=== PATIENT | female | born 1950 | race Caucasian/White ===

== ENCOUNTER → 2017-03-05 | Outpatient (CLI) | payer OTHER ==
[~2017-03-05] MED LIST: ASPIRIN CHEWABL81 MG PO; ASPIRIN325 MG PO; CILOXAN 5 ML5 M1 OP; CIPROFLOXACIN500 MG PO; CLARITIN10 MG PO; COMBIVENT1 ARO IH; LEVOTHYROXINE0.15 M1 PO; LIPITOR20 MG PO; LOPID600 MG PO; MACROBID100 M1 PO; MEDROL DOSEPAK4 MG PO; NITROGLYCERIN0.4 MG SL; OFLOXACIN OTIC5 ML OPH; SYNTHROID,LEV125 MCG PO; VIBRAMYCIN100 MG PO; VICODIN 5/500 505 MG PO; VICODIN1 TAB PO; Zofran4 MG PO
== END | disposition home or self-care (01) ==
LOC: CT 08:49
DX: R93.5 Abnormal findings on diagnostic imaging of other abdominal regions, including retroperitoneum (principal); K59.00 Constipation, unspecified; M43.26 Fusion of spine, lumbar region; R63.0 Anorexia; Z87.891 Personal history of nicotine dependence; Z90.49 Acquired absence of other specified parts of digestive tract; Z90.710 Acquired absence of both cervix and uterus

== ENCOUNTER → 2017-03-24 | Outpatient (CLI) | payer OTHER | END | disposition home or self-care (01) | LOC: RAD 12:54 | DX: Z78.0 Asymptomatic menopausal state (principal) ==

== ENCOUNTER 2017-11-11 18:07 | Emergency (ER) | payer OTHER, MEDICAID ==
[~2017-11-11] VITALS: Ht 149.8 cm; Wt 44.0 kg
[2017-11-11 18:40] LABS: BASO # 0.1 10*3/uL (0.0-0.1); BASO % 0.8 % (0.0-1.0); EOS # 0.1 10*3/uL (0.0-0.4); EOS % 1.1 % (1.0-4.0); HEMATOCRIT 45.2 % (37.0-47.0); HEMOGLOBIN 15.3 g/dl (12.0-16.0); LYMPH # 3.2 10*3/uL (1.3-4.4); LYMPH % 23.7 % (27.0-41.0); MEAN CORPUSCULAR HGB 31.8 pg (27.0-31.0); MEAN CORPUSCULAR HGB CONC 33.8 g/dl (33.0-37.0); MEAN PLATELET VOLUME 11.4 fl (9.6-12.3); MONO # 0.7 10*3/uL (0.1-1.0); MONO % 5.5 % (3.0-9.0); NEUT # 9.1 10*3/uL (2.3-7.9); NEUT % 68.4 % (47.0-73.0); PLATELET COUNT AUTOMATED 373 10*3/uL (130-400); RED BLOOD COUNT 4.81 10*6/uL (4.10-5.10); RED CELL DISTRI WIDTH 13.2 % (0-14.5); WHITE BLOOD COUNT 13.3 10*3/uL (4.8-10.8)
[2017-11-11 18:56] LABS: ALBUMIN 4.1 gm/dl (3.1-4.5); ALKALINE PHOSPHATASE 112 U/L (45-117); BUN 20 mg/dl (7-24); CHLORIDE 103 mmol/L (98-107); CREATININE 0.82 mg/dL (0.55-1.02); LIPASE 111 U/L (73-393); POTASSIUM 3.9 mmol/L (3.5-5.1); SGOT/AST 25 IU/L (3-35); SGPT/ALT 27 U/L (12-78); SODIUM 139 mmol/L (136-145); TOTAL PROTEIN 8.2 gm/dL (6.4-8.2)
[2017-11-11 19:45] LABS: BILIRUBIN NEGATIVE (NEGATIVE); BLOOD NEGATIVE (NEGATIVE); CLARITY CLEAR (CLEAR); COLOR YELLOW (YELLOW); GLUCOSE NEGATIVE (NEGATIVE); KETONE NEGATIVE (NEGATIVE); LEUKO ESTERASE TRACE (NEGATIVE); NITRITE NEGATIVE (NEGATIVE); SPECIFIC GRAVITY <= 1.005 (1.005-1.030); UROBILINOGEN 0.2 E.U./dl (0.2-1.0)
[2017-11-11 19:54] LABS: BACTERIA 2+; EPITHELIAL CELLS 15-20; RBC 0-2 rbc/hpf (0-2)
[2017-11-11] MEDS ORDERED: MIRALAX POWDER17 G1 PO (20:26)
[2017-11-11] MEDS ORDERED: Bactrim DS PO (20:26)
== END 2017-11-11 20:37 | disposition home or self-care (01) ==
LOC: ED 18:07
PROVIDERS: Nurse Practitioner Family
DX: N39.0 Urinary tract infection, site not specified (principal); K59.00 Constipation, unspecified; R03.0 Elevated blood-pressure reading, without diagnosis of hypertension; F17.200 Nicotine dependence, unspecified, uncomplicated; Z88.0 Allergy status to penicillin

== ENCOUNTER 2017-11-24 14:01 | Emergency (ER) | payer OTHER, MEDICAID ==
[~2017-11-24] VITALS: Ht 149.8 cm; Wt 42.6 kg
[~2017-11-24 14:01] MED LIST changes: +Bactrim DS PO; +MIRALAX POWDER17 G1 PO
== END 2017-11-24 15:50 | disposition home or self-care (01) ==
LOC: ED 14:01
DX: F32.9 Major depressive disorder, single episode, unspecified (principal); F17.200 Nicotine dependence, unspecified, uncomplicated; Z88.0 Allergy status to penicillin; Z79.899 Other long term (current) drug therapy; Z79.82 Long term (current) use of aspirin; Z86.73 Personal history of transient ischemic attack (TIA), and cerebral infarction without residual deficits

== ENCOUNTER 2018-03-02 16:09 | Emergency (ER) | payer OTHER, MEDICAID ==
[~2018-03-02] VITALS: Ht 157.4 cm; Wt 63.5 kg
[2018-03-02 16:40] LABS: BASO # 0.1 10*3/uL (0.0-0.1); BASO % 0.6 % (0.0-1.0); EOS # 0.3 10*3/uL (0.0-0.4); EOS % 2.8 % (1.0-4.0); HEMATOCRIT 41.8 % (37.0-47.0); HEMOGLOBIN 13.8 g/dl (12.0-16.0); LYMPH # 3.2 10*3/uL (1.3-4.4); LYMPH % 29.9 % (27.0-41.0); MEAN CELL VOLUME 95.9 fl (81.0-99.0); MEAN CORPUSCULAR HGB 31.7 pg (27.0-31.0); MEAN PLATELET VOLUME 10.8 fl (9.6-12.3); MONO # 0.8 10*3/uL (0.1-1.0); MONO % 7.1 % (3.0-9.0); NEUT # 6.3 10*3/uL (2.3-7.9); NEUT % 59.1 % (47.0-73.0); PLATELET COUNT AUTOMATED 315 10*3/uL (130-400); RED BLOOD COUNT 4.36 10*6/uL (4.10-5.10); RED CELL DISTRI WIDTH 13.3 % (0-14.5); WHITE BLOOD COUNT 10.6 10*3/uL (4.8-10.8)
[2018-03-02 16:57] LABS: BUN 15 mg/dl (7-24); CHLORIDE 109 mmol/L (98-107); CREATININE 0.66 mg/dL (0.55-1.02); POTASSIUM 4.1 mmol/L (3.5-5.1); SODIUM 143 mmol/L (136-145)
[2018-03-02 16:59] LABS: TROPONIN I < 0.015 ng/ml (<0.045)
== END 2018-03-02 17:28 | disposition home or self-care (01) ==
LOC: ED 16:09
PROVIDERS: Emergency Medicine
DX: R25.2 Cramp and spasm (principal); Z98.890 Other specified postprocedural states; Z90.710 Acquired absence of both cervix and uterus; Z86.73 Personal history of transient ischemic attack (TIA), and cerebral infarction without residual deficits; Z79.82 Long term (current) use of aspirin; Z79.899 Other long term (current) drug therapy; Z88.0 Allergy status to penicillin; Z87.891 Personal history of nicotine dependence

== ENCOUNTER → 2018-05-12 | Outpatient (CLI) | payer OTHER, MEDICAID | END | disposition home or self-care (01) | LOC: CT 10:34 | DX: I70.201 Unspecified atherosclerosis of native arteries of extremities, right leg (principal) ==

== ENCOUNTER → 2018-06-15 | Outpatient (CLI) | payer OTHER, MEDICAID | END | disposition home or self-care (01) | LOC: RAD 11:12 | DX: R07.9 Chest pain, unspecified (principal) ==

== ENCOUNTER → 2018-12-02 | Outpatient (CLI) | payer OTHER, MEDICAID ==
[~2018-12-02] MED LIST changes: +NORCO 5-325 TA1 EACH PO; +PLAVIX75 M1 PO; -VICODIN1 TAB PO; +ZOCOR40 MG PO
== END | disposition home or self-care (01) ==
LOC: US 12:06
DX: I73.89 Other specified peripheral vascular diseases (principal); Z95.820 Peripheral vascular angioplasty status with implants and grafts

== ENCOUNTER → 2018-12-29 | Outpatient (CLI) | payer OTHER, MEDICAID ==
[~2018-12-29] MED LIST changes: +DELTASONE20 M1 PO; +FOSAMAX70 M1 PO; +Ipratropium Brom3 ML INH; +OMEPRAZOLE40 MG PO
== END | disposition home or self-care (01) ==
LOC: CT 08:47
DX: M51.36 Other intervertebral disc degeneration, lumbar region (principal); M47.896 Other spondylosis, lumbar region

== ENCOUNTER → 2019-03-28 | Outpatient (CLI) | payer OTHER, MEDICAID | END | disposition home or self-care (01) | LOC: RAD 10:30 | DX: Z13.820 Encounter for screening for osteoporosis (principal); N95.9 Unspecified menopausal and perimenopausal disorder; Z90.710 Acquired absence of both cervix and uterus ==

== ENCOUNTER → 2019-05-15 | Outpatient (CLI) | payer OTHER, MEDICAID ==
[2019-05-15 10:13] VITALS: BP 123/68
== END | disposition home or self-care (01) ==
LOC: INJECTION 09:46
DX: M81.0 Age-related osteoporosis without current pathological fracture (principal); E78.00 Pure hypercholesterolemia, unspecified; J43.9 Emphysema, unspecified; F17.200 Nicotine dependence, unspecified, uncomplicated; Z86.73 Personal history of transient ischemic attack (TIA), and cerebral infarction without residual deficits

== ENCOUNTER 2019-06-03 18:47 | Emergency (ER) | payer OTHER, MEDICAID ==
[~2019-06-03] VITALS: Ht 149.8 cm; Wt 48.5 kg
--- NOTE | ~2019-06-03 | PR ---
[place], [place] PROGRESS NOTE NAME: ÁNGELA HENRY UNIT #: [id number] ROOM: DOCTOR: NAIF GRIFFITHS MD BIRTHDATE: [birth year] DOS: 06/13/2019 SUBJECTIVE: She was n.p.o. ____ for bronchoscopy done today. She continues to have similar cough and pain in and abdominal wall muscles because of the cough. Denies symptoms of chest pain. There were no symptoms of hemoptysis. Shortness of breath and wheezing was also reported intermittently. REVIEW OF SYSTEMS: Remaining system were reviewed that was noted all negative. PHYSICAL EXAMINATION: VITAL SIGNS: Normal temperature, respiratory rate of 20, heart rate 87, blood pressure 136/66. The pulse oxygen saturation recorded on room air 94% saturation. HEENT: Head was divided. Eyes nonicterus. NECK: Supple. CARDIOVASCULAR: S1, S2 is audible. LUNGS: Noted patient without any wheezing or crackles at the present time. ABDOMEN: Soft, nontender. Bowel sounds present. EXTREMITIES: The patient was noted without any acute edema. MUSCULOSKELETAL: Without any acute deformities. CENTRAL NERVOUS SYSTEM: Intact. IMPRESSION: 1. Acute exacerbation of chronic obstructive pulmonary disease, persistent nonresolving cough, since hospitalization with musculoskeletal pain. 2. History of previous nicotine abuse. 3. Possibility of nodular opacity in the right lower lobe, most likely related to the area of atelectasis, small infection. 4. Addition nodule left upper lung noted, less than 8 mm in size. 5. History of nicotine dependence. PLAN OF TREATMENT: Proceed with the bronchoscopy as planned. No additional change of treatment, patient remains ____ any adjustment in the medication needs to be done will be ordered based on the progression of the illness. Usual care. Other supportive therapy, plan of management care, plan of treatments. [place], [place] PROGRESS NOTE NAME: ÁNGELA HENRY UNIT #: [id number] ROOM: DOCTOR: NAIF GRIFFITHS MD BIRTHDATE: [birth year] NAIF ANDERSON MD CM:PNTRANS [id number] NAIF LOTT MD 06/14/19 0917 interface
[~2019-06-03 18:47] MED LIST changes: -DELTASONE20 M1 PO; -Ipratropium Brom3 ML INH; -OMEPRAZOLE40 MG PO
[2019-06-03] MEDS ORDERED: DELTASONE20 M1 PO (20:56)
[2019-06-03] MEDS ORDERED: VIBRAMYCIN100 MG PO (20:56)
== END 2019-06-03 22:41 | disposition home or self-care (01) ==
LOC: ED 18:47
DX: J32.9 Chronic sinusitis, unspecified (principal); J44.1 Chronic obstructive pulmonary disease with (acute) exacerbation; H57.89 Other specified disorders of eye and adnexa; F17.200 Nicotine dependence, unspecified, uncomplicated; Z79.899 Other long term (current) drug therapy; Z79.82 Long term (current) use of aspirin; Z88.0 Allergy status to penicillin

== ENCOUNTER 2019-06-08 11:54 | Inpatient (IN) | payer OTHER, MEDICAID ==
[2019-06-08] VITALS (7 sets, daily range): BP systolic 126–156; BP diastolic 60–90
[~2019-06-08] VITALS: Ht 152.4 cm; Wt 49.6 kg
--- NOTE | ~2019-06-08 | EKG ---
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
--- NOTE | ~2019-06-08 | EKG ---
[place], [place] ELECTROCARDIOGRAM REPORT NAME: ÁNGELA HENRY UNIT #: [id number] ROOM: 516 DOCTOR: MIHAI DRAFT REPORT BIRTHDATE: [birth year] [facility] [place] Test Date: 2019-06-08 Test Time: 14:35:46 Pat Name: ÁNGELA HENRY Department: Room: 516 Gender: F Creative Assistant: aTmy Riley : 1950 Requested By: DAVION HEATON Order Number: [id number] Reading MD: Louise Jones MD Measurements Intervals [place] Rate: 84 P: 75 NM: 130 QRS: 51 QRSD: 72 T: 40 QT: 386 QTc: 457 Interpretive Statements Sinus rhythm Right atrial enlargement Compared to ECG 10/17/2018 20:57:04 No significant changes Electronically Signed On 06-09-2019 5:00:11 PDT by Louise Jones MD CM:EKGRPT:ELECTROCARDIOGRAM REPORT 1435 0500 DAVION HOLM DRAFT REPORT DAVION HEATON M.D.
--- NOTE | ~2019-06-08 | PR ---
[place], [place] PROGRESS NOTE NAME: ÁNGELA HENRY UNIT #: [id number] ROOM: 516 DOCTOR: AURA LEE MD BIRTHDATE: [birth year] DOS: 06/12/2019 SUBJECTIVE: The patient is about the same, does not have any new complaints, awaiting a bronchoscopy this morning. OBJECTIVE: VITAL SIGNS: Blood pressure is 137/79, pulse of 90, respirations 18, temperature 98.1. LUNGS: Diminished breath sounds, scattered wheezes and rhonchi. HEART: Regular. ABDOMEN: Obese, soft, nontender. EXTREMITIES: Without any edema. ASSESSMENT AND PLAN: 1. Acute exacerbation of chronic obstructive pulmonary disease, improving slowly. 2. Right lower lobe pneumonia versus pulmonary nodule, awaiting a bronchoscopy today. 3. Rheumatoid arthritis with chronic pain. ESR is normal. 4. Moderate cigarette smoker. The patient is encouraged to quit smoking. She has not had any cigarettes since admission. 5. Chronic pain from primary osteoarthritis along with rheumatoid arthritis. Continue pain medications. 6. Hypoxic respiratory failure, which has resolved. Await for bronchoscopy results to decide on discharge planning. AURA LEE MD CM:PNTRANS 7 [phone] AURA LEE MD 06/13/192230 interface
--- NOTE | ~2019-06-08 | EKG ---
[place], [place] ELECTROCARDIOGRAM REPORT NAME: ÁNGELA HENRY UNIT #: [id number] ROOM: 516 DOCTOR: MIHAI DRAFT REPORT BIRTHDATE: [birth year] [facility] Test Date: 2019-06-08 Test Time: 17:30:52 Pat Name: ÁNGELA HENRY Department: Room: 516 Gender: F Turkish Rubber: Tamy Riley : 1950 Requested By: DAVION HEATON Order Number: [id number] Reading MD: Louise Jones MD Measurements Intervals [place] Rate: 85 P: 83 IA: 129 QRS: 73 QRSD: 79 T: 69 QT: 383 QTc: 456 Interpretive Statements Sinus rhythm Right atrial enlargement Compared to ECG 10/17/2018 20:57:04 No significant changes Electronically Signed On 06-09-2019 5:02:35 PDT by Louise Jones MD CM:EKGRPT:ELECTROCARDIOGRAM REPORT 1730 0502 DAVION HOLM DRAFT REPORT DAVION HEATON M.D.
--- NOTE | ~2019-06-08 | PR ---
[place], [place] PROGRESS NOTE NAME: ÁNGELA HENRY UNIT #: [id number] ROOM: 516 DOCTOR: JUSTIN LOTT MD,NAIF BIRTHDATE: [birth year] DOS: 06/14/2019 SUBJECTIVE: She has been noted marked improvement and reduction in the respiratory symptoms after bronchoscopy. Denies symptoms of fever or chills, coughing or any sputum expectoration or any abdominal pain. OBJECTIVE: VITAL SIGNS: Normal temperature, respiratory rate 16, heart rate 100, blood pressure 130/66 early recorded. Pulse ox saturation with room air 94% saturation. HEENT: Examination shows head was atraumatic. Eyes nonicterus. NECK: Supple. CARDIOVASCULAR: S1, S2 audible. LUNGS: The patient was noted clear wheezing bilaterally. There were no crackles. ABDOMEN: Soft, nontender. LABORATORY DATA: The culture results of the bronchial washing as normal tian. IMPRESSION: 1. The patient with possibility of small airway disease with a nodular density in the right lower lobe. 2. Small left upper lung pulmonary nodule as well medially located. 3. Acute exacerbation of chronic obstructive pulmonary disease. PLAN OF MANAGEMENT: The patient could be discharged home. The patient's oral medications as antibiotics and tapering dose of prednisone. Outpatient followup for the patient was recommended for the pulmonary nodule. Other therapy, plan of management, care plan and treatment. NAIF ANDERSON MD CM:PNTRANS [phone] NAIF LOTT MD 06/21/19 0837 interface
--- NOTE | ~2019-06-08 | WRIGHTHP ---
[place], [place] PATIENT HISTORY AND PHYSICAL EXAM NAME[id number] UNIT #: [id number] ROOM: 516 DOCTOR: AURA LEE MD BIRTHDATE: [birth year] DOS: 06/08/2019 HISTORY OF PRESENT ILLNESS: This patient is a 68-year-old. The patient was seen in the office with complaints of increasing shortness of breath. There were no direct beds of admission, so the patient was sent out to the Emergency Room. She was reevaluated again in the ER, this is the second visit in the last 3-4 days. This time she was diagnosed with pneumonia and was admitted. In the office, she was hypoxic with a saturation in the low 90s on room air. She denies having any chest pains, palpitations. The cough is productive of scant amount of sputum. Denies having any nausea, any emesis, chest pains or palpitations. PAST MEDICAL HISTORY: Significant for: 1. Hospital admission last year with complaints of chest pain with a negative stress test. 2. Moderate nicotine abuse. 3. Hypothyroidism. 4. Mixed hyperlipidemia. MEDICATIONS: She is on are Plavix 75 daily, aspirin 81 daily, Elysian 5 q.4, levothyroxine 100 mcg, simvastatin 40 daily. SOCIAL HISTORY: Smoker of about 1 pack of cigarettes a day. Denies using any alcohol. She lives at home alone. PHYSICAL EXAMINATION: GENERAL: She is awake and alert and oriented. She was pretty short of breath when I initially saw in the office with [id number] respiratory distress, room air saturation of 90. VITAL SIGNS: Pulse 70, respirations 20, temperature 97.9, blood pressure of 134/75. LUNGS: Diminished breath sounds, scattered wheezes and rhonchi. HEART: Regular. ABDOMEN: Obese, soft, nontender. EXTREMITIES: Without any edema. ASSESSMENT AND PLAN: 1. Acute exacerbation of chronic obstructive pulmonary disease. The patient is placed on IV steroids and antibiotics. 2. Moist sounding cough with sepsis pattern, will do blood cultures, sputum cultures. Mucinex has been added. IV antibiotics have been added. A CT of the chest will be done to rule out extent of pneumonia. 3. Moderate cigarette smoker. The patient does not want to have any patch. 4. Severe peripheral vascular disease, status post stenting. She was supposed to undergo a peripheral arterial Doppler and Radiology today will try to get it done since she is inpatient. [place], [place] PATIENT HISTORY AND PHYSICAL EXAM NAME: ÁNGELA HENRY UNIT #: [id number] ROOM: [facility] DOCTOR: AURA LEE MD BIRTHDATE: [birth year] AURA LEE MD CM:HISPHYS:PATIENT HISTORY AND PHYSICAL EXAMINATION 0741 0751 AURA LEE MD 06/09/19 0750 interface
--- NOTE | ~2019-06-08 | PROC NOTE ---
[place], [place] PROCEDURE NOTE NAME: ÁNGELA HENRY UNIT #: [id number] ROOM: 516 DOCTOR: JUSTIN LOTT MD,NAIF BIRTHDATE: [birth year] DOS: 06/13/2019 BRONCHOSCOPY NOTE PREOPERATIVE DIAGNOSIS: Nonresolving severe cough with pulmonary nodule. POSTOPERATIVE DIAGNOSIS: Removal of significant amount of mucus impaction from major airways bilaterally. FINDINGS: Tracheobronchitis. PROCEDURE DESCRIPTION: Informed consent was obtained for the patient. The patient was brought to the OR and placed in supine position. Conscious sedation was administered by the Anesthesia Department. After that, the airway introduced into the mouth. Bronchoscope was advanced to the airway into laryngeal area. Epiglottis and vocal cords seen. Vocal cord was moving symmetrically with movements. Bronchoscope was advanced to the vocal cord and tracheal lumen. Tracheal lumen was identified. Tracheal lumen was noted with moderate amount of thick mucus, suctioned out to the barry level. Right upper, right middle, right lower, left upper, lingular lower lobe bronchi noted with large plugs of mucus, which was removed with the help of normal saline wash without any difficulty. Postoperative findings were discussed with the patient's and the patient in detail in the recovery room. NAIF ANDERSON MD CM:PROCNOTE:PROCEDURE NOTE 1246 0043 NAIF LOTT MD
--- NOTE | ~2019-06-08 | PR ---
[place], [place] PROGRESS NOTE NAME: ÁNGELA HENRY UNIT #: [id number] ROOM: 516 DOCTOR: AURA LEE MD BIRTHDATE: [birth year] DOS: 06/14/2019 SUBJECTIVE: The patient is doing well without any complaints this morning, underwent the bronchoscopy yesterday. OBJECTIVE: VITAL SIGNS: Graphic trend shows a pressure 134/66, pulse of 80, respirations 16, temperature 97.9. LUNGS: Clear. HEART: Regular. ABDOMEN: Soft. EXTREMITIES: Without any edema. LABORATORY DATA: Blood culture shows no bacterial growth. Sputum culture preliminary moderate, a few gram-negative bacilli, fungal cultures no abnormality. ASSESSMENT AND PLAN: 1. Acute exacerbation of chronic obstructive pulmonary disease, improved bronchospasm, is finally resolved. 2. Possibility of a lung nodule. Dr. Farmer advised PET scan as an outpatient. 3. Rheumatoid arthritis with also primary osteoarthritis with chronic pain control. ESR is normal. Rest of the rheumatoid panel is not available yet. 4. Moderate cigarette smoker. The patient is encouraged to quit smoking. The patient declined any medicines for that. 5. Lactic acidosis of unknown etiology. The patient did receive fluids for several days. We will check the lactic acid before discharge today. AURA LEE MD CM:PNTRANS [phone] AURA LEE MD 06/14/19 0705 interface
--- NOTE | ~2019-06-08 | CON ---
[place], [place] REPORT OF CONSULTATION NAME[id number] UNIT #: [id number] ROOM: 516 DOCTOR: NAIF GRIFFITHS MD BIRTHDATE: [birth year] DOS: 06/12/2019 PULMONARY CONSULTATION, EVALUATION, AND MANAGEMENT REASON FOR CONSULTATION: To assess the patient's symptoms of shortness of breath and cough. HISTORY OF PRESENT ILLNESS: A 68-year-old white female who has been admitted to the hospital since 06/08/2019. The patient presented to the hospital Emergency Room as she has been started experiencing increased symptoms of chest congestion and tightness in the chest. She was also reporting symptoms of progressive cough, which remained nonproductive. She has been coughing excessively, unable to expectorate sputum. Complaining of soreness in the upper portion of abdomen because of excessive nonproductive cough. The patient denies symptoms of hemoptysis. Shortness of breath and wheezing was also reported. The patient has been treated with intravenous steroids and other medical management for acute exacerbation of COPD. CT scan of the chest was completed that has reported evidence of pulmonary nodule. REVIEW OF SYSTEMS: CONSTITUTIONAL: Fatigue and tiredness noted without any symptoms of fever or chills. EYES: Denies any burning, redness, or tenderness. EARS, NOSE, THROAT SYMPTOMS: Denies sore throat, hoarseness, otalgia, postnasal drainage or epistaxis. CARDIOVASCULAR: Denies anginal pain, edema, or pain of the lower extremities. GASTROINTESTINAL SYMPTOMS: Denies dysphagia, nausea, vomiting, diarrhea, abdominal pain, hematemesis, or melena. The abdominal pain reported in the anterior abdominal wall is related to the cough and muscle contraction. GENITOURINARY SYMPTOMS: Denies dysuria, suprapubic pain, or hematuria. MUSCULOSKELETAL: No acute joint pain, redness, or tenderness. SKIN: No lesions or rashes reported. Remaining systems were reviewed. They were noted all negative. PAST MEDICAL HISTORY: Known reported: 1. COPD. 2. Chronic nicotine dependence. 3. Hypothyroidism. 4. Hypercholesterolemia and hyperlipidemia. 5. Anginal pain. 6. History of transient ischemic attack. 7. Intervertebral disk disease. PAST SURGICAL HISTORY: Noted: 1. . 2. Hysterectomy. 3. Cholecystectomy. 4. Intervertebral disk removed of the lumbar and cervical spine. 5. Bilateral carpal tunnel release. [place], [place] REPORT OF CONSULTATION NAME: ÁNGELA HENRY UNIT #: [id number] ROOM: 516 DOCTOR: NAIF GRIFFITHS MD BIRTHDATE: [birth year] SOCIAL HISTORY: The patient is , has 2 children, lives at home. Tobacco use noted since teens, a pack of cigarettes per day. Active use noted since hospitalization. FAMILY HISTORY: Reported for diabetes, hypertension and cancer. HOME MEDICATIONS: Medications which were listed in the home used as aspirin, Plavix. Recent prescription oral doxycycline, [place], levothyroxine, tapering prednisone and simvastatin. DRUG ALLERGIES: NOTED ALLERGY TO PENICILLINS. CURRENT MEDICATIONS: Administered Solu-Medrol 30 mg q. 8 hours, Plavix, aspirin, levothyroxine, simvastatin, Mucinex 600 mg p.o. b.i.d., DuoNeb q. 4 hours and other meds. PHYSICAL EXAMINATION: GENERAL: This is a 68-year-old female who is currently noted to be awake and alert sitting on the bed this morning of assessment. The weight of 109 pounds, BMI 21.3. VITAL SIGNS: Normal temperature since hospitalization, respiratory rate recorded as 16-20, heart rate of 102-91, blood pressure ____. Pulse oxygen saturation on rest and room air is 94% saturation recorded. HEENT: Examination shows head was atraumatic. Eyes nonicterus. NECK: Supple. CARDIOVASCULAR: S1, S2 is audible. No added sounds. LUNGS: Noted diffuse reduction in breath sounds with expiratory wheezing noted, moderate to severe. ABDOMEN: Soft, nontender. Bowel sounds present. EXTREMITIES: Without acute edema. MUSCULOSKELETAL: Without acute deformities. CENTRAL NERVOUS SYSTEM: Cranial nerves 2-12 intact. LABORATORY DATA: Reviewed PT/PTT on 06/08/2019 normal on admission noted as normal CMP. CBC of 06/08/2019, WBC count 16.4, hemoglobin and hematocrit normal, platelet count normal. Lactic acid 2.1, then variably elevated. Blood culture from 06/08/2019 shows no bacterial growth. ESR was 27. Chest x-ray that was done one-view reviewed the finding of chronic obstructive pulmonary disease, hyperinflation without any acute pulmonary infiltration. CT scan chest that was completed on 06/09/2019 was reported by the radiologist report as 1.4 cm x 0.7 cm. Patchy airspace density in the medial basal subsegment of the right lower lobe. A small nodule, 4.5 mm noted in the left upper lobe medially. It was reported as previous size increased from 4.6 mm to 5.8 mm of maximum dimension. The CT scan comparison was made from 06/08/2019 was compared to the CT scan of 08/09/2014. Changes of centrilobular emphysema was also noted. IMPRESSION: 1. Small acute localize infiltration pneumonia was noted in the right lower lobe is most likely; however, the 2 nodules cannot be completely excluded. [place], [place] REPORT OF CONSULTATION NAME: ÁNGELA HENRY UNIT #: [id number] ROOM: 51 DOCTOR: NAIF GRIFFITHS MD BIRTHDATE: [birth year] 2. Small nodule noted in the left upper lobe as well as nodular density in the right lower lobe. The right lower lobe could be considered localized atelectasis and infection. 3. Ongoing acute exacerbation of chronic obstructive pulmonary disease that has not been resolving with current medical management. 4. Chronic nicotine dependence. PLAN OF MANAGEMENT: Continuation of the bronchodilators, oxygen supplementation and increase the dose of corticosteroids to 40 mg every 8 hours. Bronchoscopy will be done for assessment of the mucus impactions as the patient has not been showing much improvement in symptoms and continued to remain with ongoing symptoms of cough, which has not been resolving the musculoskeletal symptoms because of excessive contraction of the muscles with ineffective sputum expectoration with cough. The patient will be continued with continuation of the Mucinex. Continue bronchodilators. Other therapy, plan of management and additional treatment changes will be recommended based on progression of illness. Risk and the benefits of the bronchoscopy were done and agreed. The procedure will be done tomorrow morning. NAIF ANDERSON MD CM:CONSTR:REPORT OF CONSULTATION 1223 06/12/19 1537 interface
--- NOTE | ~2019-06-08 | PR ---
[place], [place] PROGRESS NOTE NAME: ÁNGELA HENRY UNIT #: [id number] ROOM: 516 DOCTOR: AURA LEE MD BIRTHDATE: [birth year] DOS: SUBJECTIVE: The patient complains of a lot of diffuse aches and pains. OBJECTIVE: VITAL SIGNS: Graphic trend shows a pressure of 136/62, pulse of 70, respirations 16, temperature 98. LUNGS: Diminished breath sounds. Fairly clear this morning. HEART: Regular. ABDOMEN: Soft. EXTREMITIES: Without any edema. ASSESSMENT AND PLAN: 1. Right lower lobe pneumonia with no nodular opacities suggestive of atelectasis versus pulmonary nodule. Awaiting Dr. Farmer's input. The patient may benefit from a bronchoscopy. Clinically, the patient is improving as far as the pneumonia is concerned. 2. Acute exacerbation of chronic obstructive pulmonary disease, stable. We will taper the steroids down. 3. Rheumatoid arthritis with chronic pain, already on multiple pain medications. We will do rheumatoid panel and see whether she will qualify for low dose methotrexate. AURA LEE MD CM:PNTRANS 0705 0713 AURA LEE MD 06/13/19 0432 interface
--- NOTE | ~2019-06-08 | PR ---
[place], [place] PROGRESS NOTE NAME: ÁNGELA HENRY UNIT #: [id number] ROOM: 516 DOCTOR: JONATHAN STANLEY MD BIRTHDATE: [birth year] DOS: 06/11/2019 OBJECTIVE: GENERAL APPEARANCE: The patient is alert and oriented x 3, in no visible distress. VITAL SIGNS: Blood pressure 132/76, heart rate 96 beats per minute, breathing 18 times a minute, temperature 98.3 degrees Fahrenheit. HEENT AND NECK: Exam within normal limits. CARDIOVASCULAR SYSTEM: Heart rate is regular in rate and rhythm. S1 and S2 normally audible. LUNGS: Clear to auscultation. ABDOMEN: Soft, nontender. No obvious organomegaly. Bowel sounds are present. EXTREMITIES: Without significant cyanosis or edema. IMPRESSION: 1. The patient with acute exacerbation of chronic obstructive pulmonary disease, continues to improve with treatment. The patient on IV corticosteroids and antibiotic, bronchodilators. CT scan of the chest shows infiltrate versus pulmonary nodule, which is a new finding since last CAT scan performed in 2013 in the right lower lung. 2. Right lower lung infiltrate. Dr. Farmer been consulted to evaluate. 3. Arterial Dopplers of the lower extremities, status post stenting, is normal. 4. Nicotine smoke dependence. The patient is being encouraged to stop. 5. Hypothyroidism, treated with levothyroxine. 6. Mixed hyperlipidemia, treated with simvastatin. JONATHAN STANLEY MD CM:PNTRANS 1518 0045 JONATHAN STANLEY MD 06/12/19 0043 interface
--- NOTE | ~2019-06-08 | EKG ---
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
--- NOTE | ~2019-06-08 | PR ---
[place], [place] PROGRESS NOTE NAME: ÁNGELA HENRY UNIT #: [id number] ROOM: 516 DOCTOR: JONATHAN STANLEY MD BIRTHDATE: [birth year] DOS: 06/11/2019 ASSESSMENT: 1. The patient with right lower lobe airspace density. Dr. Farmer consulted for evaluation. 2. Acute exacerbation of chronic obstructive pulmonary disease, being treated with corticosteroids and antibiotics, improving. 3. Severe peripheral arterial disease status post stenting and arterial Dopplers showing normal flow. 4. Nicotine smoke dependence. The patient refused nicotine patch. 5. Hypothyroidism, replaced with levothyroxine. 6. Mixed hyperlipidemia, treated with simvastatin. JONATHAN STANLEY MD CM:PNTRANS [phone] JONATHAN STANLEY MD 06/12/19 1854 interface
--- NOTE | ~2019-06-08 | DS ---
[place], [place] DISCHARGE SUMMARY NAME: [id number] UN[facility] #: [id number] ROOM: 516 DOCTOR: AURA LEE MD BIRTHDATE: [birth year] DOS: 06/14/2019 DIAGNOSES: 1. Acute exacerbation of chronic obstructive pulmonary disease. 2. Acute hypoxic respiratory failure, resolved. 3. Lactic acidosis. 4. Right lower lobe pneumonia with a nodular density, status post bronchoscopy with negative cultures. 5. History of cerebrovascular accident. 6. Peripheral vascular disease, status post angioplasty. 7. Rheumatoid arthritis. 8. Primary osteoarthritis with chronic low back pain. 9. Hypothyroidism. 10. Mixed hyperlipidemia. DISCHARGE MEDICATIONS: Medications on discharge will be doxycycline 100 mg p.o. b.i.d. for 7 days, Plavix 75 daily, simvastatin 40 daily, aspirin 81 mg daily, [place] 5/325 q.4 hours p.r.n., omeprazole 40 daily, prednisone tapering dose, levothyroxine 100 mcg daily, DuoNeb q.4 hours. Breathing treatments with DuoNeb q.6 hours. HOSPITAL COURSE: This patient is 68 years old, very well known to us, comes in with complaints of difficulty breathing. She had been to the Emergency Room 2 days prior to this admission, was prescribed antibiotics and steroids, started the medication without any improvement, decided to come into the office. By the time she arrived in the office, she was significantly tachypneic and in moderate respiratory distress with hypoxemia with an oxygen saturation of 90 on room air. She was sent to the ER since there were no beds available. On visit in the ER, she was admitted. After admission, she was placed on IV steroids, antibiotics, breathing treatments and oxygen supplementation. She did have evident lactic acidosis. CT of the chest was obtained, which showed pulmonary small pneumonia, bronchial narrowing. Dr. Farmer was consulted. Bronchoscopy was performed. Bronch cultures so far shows no bacterial growth. The patient needs to start antibiotics and continue that for 10 days and repeat a PET scan as an outpatient to see whether there are any abnormalities, because there is a possibility of a nodule. The patient is also encouraged to quit smoking. The patient states that she did not want any medicines to quit smoking because she states that she has already quitted and is not interested in smoking any longer. [place], [place] DISCHARGE SUMMARY NAME: ÁNGELA HENRY UNIT #: [id number] ROOM: 516 DOCTOR: AURA LEE MD BIRTHDATE: [birth year] AURA LEE MD CM:AKASH [id number] [phone] AURA LEE MD 06/14/19 1655 interface
[~2019-06-08 11:54] MED LIST changes: +DELTASONE20 M1 PO
[2019-06-08 12:21] LABS: HEMATOCRIT 38.8 % (37.0-47.0); HEMOGLOBIN 12.2 g/dl (12.0-16.0); MEAN CELL VOLUME 92.2 fl (81.0-99.0); MEAN CORPUSCULAR HGB CONC 31.4 g/dl (33.0-37.0); MEAN PLATELET VOLUME 10.4 fl (9.6-12.3); PLATELET COUNT AUTOMATED 563 10*3/uL (130-400); RED BLOOD COUNT 4.21 10*6/uL (4.10-5.10); RED CELL DISTRI WIDTH 14.6 % (0-14.5); WHITE BLOOD COUNT 16.8 10*3/uL (4.8-10.8)
[2019-06-08 12:33] LABS: ACT PARTIAL THROMBO TIME 23.7 SECONDS (20.0-32.1); INTERNATIONAL NORM RATIO 0.9 (2.0-3.5)
[2019-06-08 12:40] LABS: ALBUMIN 3.8 gm/dl (3.1-4.5); ALKALINE PHOSPHATASE 112 U/L (45-117); BUN 15 mg/dl (7-24); CHLORIDE 107 mmol/L (98-107); CREATININE 0.78 mg/dL (0.55-1.02); POTASSIUM 3.7 mmol/L (3.5-5.1); SGOT/AST 18 IU/L (3-35); SGPT/ALT 20 U/L (12-78); SODIUM 140 mmol/L (136-145); TOTAL PROTEIN 7.7 gm/dL (6.4-8.2)
[2019-06-08 12:44] LABS: TROPONIN I < 0.015 ng/ml (<0.045)
[2019-06-08 12:51] LABS: PLATELET SUFFICIENCY HIGH (NORMAL); TOTAL CELLS COUNTED 100 #CELLS
--- NOTE | 2019-06-08 17:49 | NUR ---
CCA 68, admitted to [facility], under the services of AURA Carrington MD with a diagnosis of SEVERE SEPSIS, PNEUMONIA. Chief complaint is SOB. Patient arrived via from ER. Monitor applied. Initial assessment completed. Vital signs taken and recorded. AURA CARRINGTON MD notified of admission to the unit. Orders received. See assessment for past medical history, medications and allergies. Patient and/or family oriented to unit. [facility] 516-1 visitation policy reviewed. Clothing/patient valuable form completed. NAVID LORA.
--- NOTE | 2019-06-08 19:01 | NUR ---
NOTIFIED REGARDING CRITICAL LACTIC ACID.
--- NOTE | 2019-06-08 19:02 | NUR ---
NOTIFIED REGARDING PCN ALLERGY.
--- NOTE | 2019-06-08 20:30 | NUR ---
Patient is resting in bed with easy and regular respers on room air. Assessment is complete with no c/o or s/s of distress noted at this time. Bed is low, locked, and call light is within reach. Will continue to monitor, see shift assessment.
--- NOTE | 2019-06-08 20:35 | NUR ---
2000 medications given, patient tolerated well. Call light is within reach.
--- NOTE | 2019-06-08 21:05 | NUR ---
2200 medications given at this time, patient tolerated well. Call light is within reach.
--- NOTE | 2019-06-08 22:56 | NUR ---
PRN [place] given at this time for patient c/o back pain rating a 7/10. Call light is within reach, will continue to monitor.
--- NOTE | 2019-06-08 23:00 | NUR ---
PRN [place] seems effective, patient is sleeping with easy and regular respers on room air. Call light is within reach.
[2019-06-09] VITALS: BP 134/75
--- NOTE | 2019-06-09 04:35 | NUR ---
Patient arouses easily for administration of 0600 medications. Patient tolerated well, call light is within reach.
--- NOTE | 2019-06-09 05:26 | NUR ---
PRN Tylenol given for c/o headache, patient tolerated well. Call light is within reach, will monitor.
--- NOTE | 2019-06-09 06:53 | NUR ---
Dr. Serrano contacted at this time regarding Lactic Acid of 4.2, no new orders at this time.
[2019-06-09 08:00] VITALS: BP 148/76
[2019-06-09 12:00] VITALS: BP 136/81
--- NOTE | 2019-06-09 12:49 | NUR ---
Fruit Coordinator in to talk to patient. Patient states lives at HOME with ALONE. There are BASEMENT steps in the home. Physician: ROSA [facility]acy: [facility] Home health services: NONE Patient's level of ADLs: INDEPENDENT Patient has working utilities: YES DME: NONE Follow-up physician's appointment after d/c: WILL BE MADE BY HOSPITALIST NURSE DIRECTOR ON DISCHARGE Does patient want to access PORTAL?: NO Discharge plan PT STATES SHE LIVES AT HOME ALONE AND IS INDEPENDENT IN HER CARE. DENIES SHE HAS NEEDS AT HOME. STATES SHE WILL RETURN HOME ON DISCHARGE WILL CONTINUE TO FOLLOW. WILL HAVE A RIDE HOME ON DISCHARGE.. ROBSON VALLEJO
[2019-06-09 16:00] VITALS: BP 149/76
[2019-06-09 20:00] VITALS: BP 126/76
--- NOTE | 2019-06-09 23:18 | NUR ---
PRN NORCO GIVEN FOR PT COMPLAINTS OF BACK PAIN RATING IT 10. CALL LIGHT WITHIN REACH, WILL MONITOR
[2019-06-10] VITALS: BP 124/58
--- NOTE | 2019-06-10 | NUR ---
PRN NORCO APPEARS EFFECTIVE, PT SLEEPING
--- NOTE | 2019-06-10 01:41 | NUR ---
24 HR chart check completed.
[2019-06-10 08:00] VITALS: BP 149/68
--- NOTE | 2019-06-10 09:45 | NUR ---
Patient requested and was medicated as ordered PRN [place] 5/325mg PO for complaint of pain to back rated per patient as a 7.5 on a 1-10 scale. Will monitor patient for effectiveness.
--- NOTE | 2019-06-10 10:45 | NUR ---
Reassessed patient for pain, patient rates pain as a 3 on 1-10 scale at this time. Pain medication appears effective. Will continue to monitor. Sandie Rodarte OVCT Student Amina Hernandez OVCT instructor
[2019-06-10 12:00] VITALS: BP 136/68
[2019-06-10 16:00] VITALS: BP 144/80
[2019-06-10 20:00] VITALS: BP 130/71
[2019-06-11] VITALS: BP 124/60
--- NOTE | 2019-06-11 03:38 | NUR ---
PATIENT MEDICATED WITH PRN NORCO ORDERD FOR C/O BACK PAIN RATED 8.5/10
[2019-06-11 08:00] VITALS: BP 122/68
--- NOTE | 2019-06-11 08:42 | NUR ---
PT RESTING IN BED . NO DISTRESS NOTED. CALL LIGHT WITHIN REACH. NO VOICED C/O. WILL MONITOR
--- NOTE | 2019-06-11 09:43 | NUR ---
PT REQUESTED AND GIVEN NORCO FOR C/O BACK PAIN/ PT RATES PAIN 05/08 WILL MONITOR
[2019-06-11 12:00] VITALS: BP 132/76
--- NOTE | 2019-06-11 12:00 | NUR ---
[facility]
[2019-06-11 16:00] VITALS: BP 130/65
--- NOTE | 2019-06-11 17:07 | NUR ---
PT REQUESTED AND GIVEN NORCO FOR C/O BACK PAIN. PT RATES PAIN 8/10 WILL MONITOR
--- NOTE | 2019-06-11 17:55 | NUR ---
DR ANDERSON NOTIFIED OF CONSULT
--- NOTE | 2019-06-11 18:35 | NUR ---
PINKY IS HELPING PER PT
--- NOTE | 2019-06-11 19:20 | NUR ---
ARRIVED ON SHIFT, INTRODUCED TO PATIENT, BEDSIDE REPORT RECIEVED, WHITE BOARD UPDATED, NO NEEDS VOICED AT THIS TIME.
[2019-06-11 20:00] VITALS: BP 130/76
--- NOTE | 2019-06-11 22:50 | NUR ---
24 HR chart check completed.
--- NOTE | 2019-06-11 23:00 | NUR ---
PATIENT C/O BACK PAIN WHICH SHE STATES IS 8 OF 10, SHARP, SHOOTING PAIN MEDICATED WITH HYDROCODONE/APAP 5/325MG ORDERED.
--- NOTE | 2019-06-11 23:59 | NUR ---
GOOD EFFECT FROM NORCO GIVEN AT 2259, EVIDENCED BY PATIENT RESTING QUIETLY WITH EYES CLOSED, RESPIRATIONS EVEN AND NON LABORED.
[2019-06-12] VITALS: BP 136/62
--- NOTE | 2019-06-12 02:00 | NUR ---
Patient sleeping. Respirations relaxed and easy. Siderails up 2. [place] on. JENNY DOTY
[2019-06-12 08:00] VITALS: BP 130/60
--- NOTE | 2019-06-12 08:22 | NUR ---
PT AMBULATING HALLWAYS NO DISTRESS NOTED. WILL MONITOR
--- NOTE | 2019-06-12 10:06 | NUR ---
PT REQUESTED AND GIVEN NORCO FOR BACK PAIN. PT RATES PAIN 5/10 WILL MONITOR
--- NOTE | 2019-06-12 11:01 | NUR ---
[facility]
--- NOTE | 2019-06-12 14:47 | NUR ---
PT CONTINUES TO DENY NEEDS ON DISCHARGE. WILL CONTINUE TO FOLLOW.
[2019-06-12 16:00] VITALS: BP 132/64
[2019-06-12 20:00] VITALS: BP 128/61
--- NOTE | 2019-06-12 20:54 | NUR ---
24 HR chart check completed.
--- NOTE | 2019-06-12 21:00 | NUR ---
RESTING IN BED WITH NO DISTRESS NOTED. RESPIRATIONS EASY. LUNGS DIMINISHED WITH I&E WHEEZES. ROOM AIR, DENIES SOB. CALL LIGHT WITHIN REACH. NO VOICED COMPLAINTS
--- NOTE | 2019-06-12 21:51 | NUR ---
REQUESTED AND RECEIVED NORCO PER PRN ORDER FOR COMPLAINTS OF BACK PAIN RATING AN 8. CALL LIGHT WITHIN REACH. WILL MONITOR FOR EFFECTIVENESS
--- NOTE | 2019-06-12 23:00 | NUR ---
REMAINS AWAKE BUT DROWSY. NPO STATUS DISCUSSED FOR BRONCH IN AM, VOICED UNDERSTANDING.
[2019-06-13] VITALS (8 sets, daily range): BP systolic 122–148; BP diastolic 55–96
--- NOTE | 2019-06-13 00:30 | NUR ---
SLEEPING. NO DISTRESS NOTED. RESPIRATIONS EASY. VSS. CALL LIGHT WITHIN REACH
[2019-06-13] MEDS ORDERED: OMEPRAZOLE40 MG PO (01:51)
--- NOTE | 2019-06-13 06:00 | NUR ---
SLEPT THROUGHOUT NIGHT WITH NO DISTRESS NOTED. RESPIRATIONS EASY. REMAINS NPO FOR BRONCH. CALL LIGHT WITHIN REACH. NO VOICED COMPLAINTS THIS SHIFT
--- NOTE | 2019-06-13 08:00 | NUR ---
PT TO SURGERY VIA BED
[2019-06-13 08:11] LABS: RHEUMATOID ARTHRITIS FACTOR 434.9 IU/mL (0.0-13.9)
--- NOTE | 2019-06-13 12:57 | NUR ---
PT IS HAVING BRONCH TODAY. WILL CONTINUE TO FOLLOW.
--- NOTE | 2019-06-13 19:52 | NUR ---
24 HR chart check completed.
--- NOTE | 2019-06-13 20:00 | NUR ---
SLEEPING, AWAKENS EASILY. RESPIRATIONS EASY. LUNGS DIMINISHED WITH SCATTERED WHEEZES. PULSE OX 96% RA. NON-PROD COUGH. CALL LIGHT WITHIN REACH. NO VOICED COMPLAINTS
--- NOTE | 2019-06-13 20:48 | NUR ---
REQUESTED AND RECEIVED NORCO PER PRN ORDER FOR COMPLAINTS OF BACK PAIN RATING A 9. CALL LIGHT WITHIN REACH. WILL MONITOR FOR EFFECTIVENESS
--- NOTE | 2019-06-13 22:45 | NUR ---
MEDS EFFECTIVE. SLEEPING. NO DISTRESS NOTED
[2019-06-14] VITALS: BP 134/66
--- NOTE | 2019-06-14 | NUR ---
SLEEPING WITH NO DISTRESS NOTED. RESPIRATIONS EASY. VSS. CALL LIGHT WITHIN REACH.
--- NOTE | 2019-06-14 06:00 | NUR ---
SLEPT THROUGHOUT NIGHT WITH NO DISTRESS NOTED. RESPIRATIONS EASY. CALL LIGHT WITHIN REACH. NO VOICED COMPLAINTS THIS SHIFT
--- NOTE | 2019-06-14 06:30 | NUR ---
DR LEE HERE TO ASSESS PATIENT AND DISCUSS PLAN OF CARE
--- NOTE | 2019-06-14 06:51 | NUR ---
MEDICATED WITH NORCO PER PRN ORDER FOR COMPLAINTS OF BACK PAIN RATING AN 8. CALL LIGHT WITHIN REACH. WILL MONITOR FOR EFFECTIVENESS
[2019-06-14] MEDS ORDERED: Ipratropium Brom3 ML INH (07:01)
--- NOTE | 2019-06-14 07:30 | NUR ---
AMBULATING HALLWAY. STATES RELIEF FROM EARLIER NORCO. NO FURTHER VOICED COMPLAINTS
--- NOTE | 2019-06-14 07:45 | NUR ---
NOTIFIED REGARDING CRITICAL LACTIC ACID.
--- NOTE | 2019-06-14 10:30 | NUR ---
Discharge instructions reviewed with patient/family. Patient receptive and verbalizes understanding. Follow-up care arranged. Written instructions given to patient/family. NAVID LORA.
[2019-06-14 16:12] LABS: ACID FAST SPEC PROCESSING Concentration (.)
== END 2019-06-14 10:30 | disposition home or self-care (01) | DRG 193 ==
LOC: ED 11:54 → EDHOLD 16:05 → 5E 16:05
PROVIDERS: Emergency Medicine; Internal Medicine Critical Care Medicine; ADMIT Internal Medicine
PROC: 0BCB8ZZ Extirpation of Matter from Left Lower Lobe Bronchus, Via Natural or Artificial Opening Endoscopic (ICD-10-PCS; principal; 2019-06-13)
PROC: 0BC58ZZ Extirpation of Matter from Right Middle Lobe Bronchus, Via Natural or Artificial Opening Endoscopic (ICD-10-PCS; principal; 2019-06-13)
PROC: 0BC48ZZ Extirpation of Matter from Right Upper Lobe Bronchus, Via Natural or Artificial Opening Endoscopic (ICD-10-PCS; principal; 2019-06-13)
PROC: 0BC88ZZ Extirpation of Matter from Left Upper Lobe Bronchus, Via Natural or Artificial Opening Endoscopic (ICD-10-PCS; principal; 2019-06-13)
PROC: 0BC98ZZ Extirpation of Matter from Lingula Bronchus, Via Natural or Artificial Opening Endoscopic (ICD-10-PCS; principal; 2019-06-13)
PROC: 0BC68ZZ Extirpation of Matter from Right Lower Lobe Bronchus, Via Natural or Artificial Opening Endoscopic (ICD-10-PCS; principal; 2019-06-13)
PROC: 0BC28ZZ Extirpation of Matter from Carina, Via Natural or Artificial Opening Endoscopic (ICD-10-PCS; principal; 2019-06-13)
DX: J18.1 Lobar pneumonia, unspecified organism (principal); J96.01 Acute respiratory failure with hypoxia; J44.1 Chronic obstructive pulmonary disease with (acute) exacerbation; E87.2 Acidosis; J44.0 Chronic obstructive pulmonary disease with (acute) lower respiratory infection; E89.0 Postprocedural hypothyroidism; E78.2 Mixed hyperlipidemia; M06.9 Rheumatoid arthritis, unspecified; G89.29 Other chronic pain; E78.00 Pure hypercholesterolemia, unspecified; M19.90 Unspecified osteoarthritis, unspecified site; F17.210 Nicotine dependence, cigarettes, uncomplicated; M54.5 Low back pain; I73.9 Peripheral vascular disease, unspecified; Z95.820 Peripheral vascular angioplasty status with implants and grafts; Z98.891 History of uterine scar from previous surgery; Z86.73 Personal history of transient ischemic attack (TIA), and cerebral infarction without residual deficits; Z90.49 Acquired absence of other specified parts of digestive tract; Z90.710 Acquired absence of both cervix and uterus; Z79.82 Long term (current) use of aspirin; Z79.899 Other long term (current) drug therapy; Z88.0 Allergy status to penicillin; Z82.49 Family history of ischemic heart disease and other diseases of the circulatory system; Z83.3 Family history of diabetes mellitus; Z80.8 Family history of malignant neoplasm of other organs or systems

== ENCOUNTER → 2019-08-16 | Day surgery (SDC) | payer OTHER, MEDICAID ==
[~2019-08-16] VITALS: Ht 149.8 cm; Wt 49.4 kg
[~2019-08-16] MED LIST changes: +BEVESPI AEROS10.7 GM INH; +CIPRO500 MG PO; +CYMBALTA30 MG PO; +Ipratropium Brom3 ML INH; +NORCO 7.5-3251 EACH PO; +OMEPRAZOLE40 MG PO; +PREDNISONE10 MG PO; +PREDNISONE5 MG PO; +PROAIR HFA8.5 GM INH
--- NOTE | ~2019-08-16 | PROC NOTE ---
[place], [place] PROCEDURE NOTE NAME: ÁNGELA HENRY UNIT #: [id number] ROOM: DOCTOR: JUSTIN LOTT MD,NAIF BIRTHDATE: [birth year] DOS: 08/16/2019 PREOPERATIVE DIAGNOSES: 1. Persistent severe cough, nonresolving with current outpatient medical management. 2. Right upper lung nodule as well. ANESTHESIA: Procedure done under local MAC. COMPLICATIONS: None. PROCEDURE DESCRIPTION: Informed consent obtained for the patient. The patient brought to the OR and placed in a supine position. Conscious sedation administered by the Anesthesia Department. After achieving good conscious sedation, the patient's airway introduced into the mouth. Bronchoscope advanced into the airway into laryngeal area. Epiglottis and vocal cords were seen. Vocal cord moving symmetrically with movements. Bronchoscope advanced vocal cord and tracheal lumen. Tracheal lumen was noted with mucus secretion, which was suctioned out with the help of normal saline wash. All the secretions suctioned out with the help of normal saline wash and sent for culture. Brushing was completed anterior posterior right main stem bronchus for the genomic testing as well with current pulmonary nodule to identify the risk of malignancy. Procedure was well-tolerated by the patient without difficulty. Postoperative findings will be discussed with the patient once the patient recover the effects of acute sedation. NAIF ANDERSON MD CM:PROCNOTE:PROCEDURE NOTE [id number] NAIF LOTT MD
[2019-08-16 08:30] VITALS: BP 114/67
[2019-08-16 09:35] VITALS: BP 132/72
[2019-08-16 09:50] VITALS: BP 143/114
[2019-08-17 15:03] LABS: ACID FAST SPEC PROCESSING Concentration (.)
== END | disposition home or self-care (01) ==
LOC: SDC 08-15 11:45
PROVIDERS: Internal Medicine Critical Care Medicine
DX: R91.1 Solitary pulmonary nodule (principal); R05 Cough; J44.9 Chronic obstructive pulmonary disease, unspecified; I25.10 Atherosclerotic heart disease of native coronary artery without angina pectoris; K21.9 Gastro-esophageal reflux disease without esophagitis; E78.5 Hyperlipidemia, unspecified; F32.9 Major depressive disorder, single episode, unspecified; Z98.890 Other specified postprocedural states; Z90.49 Acquired absence of other specified parts of digestive tract; Z79.899 Other long term (current) drug therapy; Z87.891 Personal history of nicotine dependence; Z86.73 Personal history of transient ischemic attack (TIA), and cerebral infarction without residual deficits; Z80.1 Family history of malignant neoplasm of trachea, bronchus and lung; Z82.49 Family history of ischemic heart disease and other diseases of the circulatory system; Z83.3 Family history of diabetes mellitus

== ENCOUNTER → 2019-08-21 | Outpatient (CLI) | payer OTHER, MEDICAID | END | disposition home or self-care (01) | LOC: CT 12:53 | DX: R91.1 Solitary pulmonary nodule (principal); R05 Cough; R09.89 Other specified symptoms and signs involving the circulatory and respiratory systems ==

== ENCOUNTER 2019-08-22 15:44 | Inpatient (IN) | payer OTHER, MEDICAID ==
[~2019-08-22] VITALS: Ht 149.9 cm; Wt 48.6 kg
[~2019-08-22 15:44] MED LIST changes: -BEVESPI AEROS10.7 GM INH; -CIPRO500 MG PO; -CYMBALTA30 MG PO; -NORCO 7.5-3251 EACH PO; -PREDNISONE5 MG PO; -PROAIR HFA8.5 GM INH
[2019-08-22 16:00] VITALS: BP 124/75
--- NOTE | 2019-08-22 16:00 | NUR ---
A 68, admitted to , under the services of AURA Carrington MD with a diagnosis of Pneumonia. Chief complaint is multiple. Patient arrived via ambulatory from ID. Monitor applied. Initial assessment completed. Vital signs taken and recorded. AURA CARRINGTON MD notified of admission to the unit. Orders received. See assessment for past medical history, medications and allergies. Patient and/or family oriented to unit. [address] visitation policy reviewed. Clothing/patient valuable form completed. ALISIA JOE
[2019-08-22] MEDS ORDERED: NORCO 7.5-3251 EACH PO (16:38)
[2019-08-22] MEDS ORDERED: CYMBALTA30 MG PO (16:39)
[2019-08-22] MEDS ORDERED: BEVESPI AEROS10.7 GM INH (16:40)
[2019-08-22] MEDS ORDERED: PREDNISONE5 MG PO (16:52)
[2019-08-22] MEDS ORDERED: PROAIR HFA8.5 GM INH (16:55)
[2019-08-22 17:58] LABS: BUN 20 mg/dl (7-24); CHLORIDE 105 mmol/L (98-107); CREATININE 0.71 mg/dL (0.55-1.02); POTASSIUM 4.2 mmol/L (3.5-5.1); SODIUM 137 mmol/L (136-145)
--- NOTE | 2019-08-22 18:00 | NUR ---
Spoke with regarding consult for PNA. See new orders.
[2019-08-22 18:31] LABS: BASO # 0.1 10*3/uL (0.0-0.1); BASO % 0.7 % (0.0-1.0); EOS # 0.2 10*3/uL (0.0-0.4); EOS % 1.4 % (1.0-4.0); HEMATOCRIT 33.4 % (37.0-47.0); LYMPH # 2.7 10*3/uL (1.3-4.4); LYMPH % 19.9 % (27.0-41.0); MEAN CELL VOLUME 81.9 fl (81.0-99.0); MEAN CORPUSCULAR HGB 24.5 pg (27.0-31.0); MEAN CORPUSCULAR HGB CONC 29.9 g/dl (33.0-37.0); MEAN PLATELET VOLUME 10.5 fl (9.6-12.3); MONO # 0.8 10*3/uL (0.1-1.0); MONO % 5.8 % (3.0-9.0); NEUT # 9.6 10*3/uL (2.3-7.9); NEUT % 71.5 % (47.0-73.0); PLATELET COUNT AUTOMATED 551 10*3/uL (130-400); RED BLOOD COUNT 4.08 10*6/uL (4.10-5.10); RED CELL DISTRI WIDTH 16.5 % (0-14.5); WHITE BLOOD COUNT 13.4 10*3/uL (4.8-10.8)
--- NOTE | 2019-08-22 18:50 | NUR ---
Per request of pharmacy, contacted Dr. Farmer to notify of allergy to PCN. Per physician, order Merrem and pharmacy to dose. See new orders.
[2019-08-22 20:00] VITALS: BP 130/64
--- NOTE | 2019-08-22 22:30 | NUR ---
PATIENT RECEIVED NORCO FOR PAIN RATED 7/10.
[2019-08-23] VITALS: BP 115/63
[2019-08-23 08:00] VITALS: BP 128/64
--- NOTE | 2019-08-23 09:00 | NUR ---
Health Educator in to talk to patient. Patient states lives at home alone with family checking in on her. There are 3 porch steps and basement steps in the home. Physician: Dr. Jadyn Serrano [facility] Home health services: none Patient's level of ADLs: INDEPENDENT Patient has working utilities: yes DME: nebulizer Follow-up physician's appointment after d/c: she prefers to make her own follow up appt after discharge Does patient want to access PORTAL?: no Discharge plan discussed with patient. She lives at home alone with her family checking in on her. She is independent in her ADLs and ambulation. Discussed home health care services and she denies any home needs at this time. When medically stable she will be discharged to home. Her [id number] will transport on discharge. Radha Faulkner
--- NOTE | 2019-08-23 11:12 | NUR ---
C/O Back pain of 05/08. requested norco given at this time.will cont to monitor.
--- NOTE | 2019-08-23 12:11 | NUR ---
DEEPTIUT EFF FOR C/O BACK PAIN. WILL CONT TO MONITOR. CALL LIGHT IN REACH.
--- NOTE | 2019-08-23 14:49 | NUR ---
DR LEE RETURNED CALL, ORDER RECEIVED FOR ZOFRAN 8MG EVERY 6 HOURS PRN.
[2019-08-23 16:00] VITALS: BP 117/53
[2019-08-24] VITALS: BP 114/64
--- NOTE | 2019-08-24 03:23 | NUR ---
24 HR chart check completed.
--- NOTE | 2019-08-24 07:50 | NUR ---
MEDICATED PT PER PRN ORDER WITH NORCO FOR C/O BACK PAIN.
[2019-08-24 08:00] VITALS: BP 135/76
--- NOTE | 2019-08-24 08:20 | NUR ---
DR LEE IN TO SEE PT. NEW ORDERS RECEIVED.
--- NOTE | 2019-08-24 08:40 | NUR ---
PT STATES RELIEF OF PAIN WITH EARLIER NORCO.
--- NOTE | 2019-08-24 09:00 | NUR ---
Educational Sign Language Interpreter in to see patient. No new needs or request at this time. She denies any home needs. When medically stable she will be discharged to home.
--- NOTE | 2019-08-24 09:48 | NUR ---
Asked Dr. Farmer if patient has healthcare associated pneumonia? Awaiting response.
--- NOTE | 2019-08-24 11:35 | NUR ---
MEDICATED PT PER PRN ORDER WITH ZOFRAN FOR C/O NAUSEA.
[2019-08-24 12:00] VITALS: BP 111/72
--- NOTE | 2019-08-24 12:00 | NUR ---
PT STATES RELIEF OF NASUEA WITH EARLIER ZOFRAN.
[2019-08-24 16:00] VITALS: BP 115/71; BP 120/62
[2019-08-24 20:00] VITALS: BP 118/53
--- NOTE | 2019-08-24 23:10 | NUR ---
PATIENT MEDICATED WITH NORCO 7.5 PER PRN ORDER FOR C/O BACK PAIN. RATED PAIN A 6/10 WITH 10 BEING THE WORST. SEE EMAR. REINFORCED USE OF CALL LIGHT
[2019-08-25] VITALS (8 sets, daily range): BP systolic 100–137; BP diastolic 49–66
--- NOTE | 2019-08-25 07:30 | NUR ---
PT OFF FLOOR FOR BRONCHOSCOPY AT THIS TIME.
--- NOTE | 2019-08-25 09:50 | NUR ---
PT RETURNED FROM SURGERY AT THIS TIME.
--- NOTE | 2019-08-25 10:00 | NUR ---
MEDICATED WITH NORCO PER PRN ORDER FOR COMPLAINTS OF LOWER BACK PAIN, RATES PAIN 8/10. WILL MONITOR FOR EFFECTIVENESS.
--- NOTE | 2019-08-25 11:35 | NUR ---
PT STATES EARLIER NORCO HELPED WITH BACK PAIN, BUT STATES SHE DOES HAVE A HEADACHE. MEDICATED WITH TYLENOL. WILL MONITOR FOR EFFECTIVENESS.
--- NOTE | 2019-08-25 13:00 | NUR ---
PT STATES EARLIER TYLENOL HELPED MILDLY WITH HEADACHE, BUT DOES REPORT SHE STILL HAS A HEADACHE.
--- NOTE | 2019-08-25 22:04 | NUR ---
PATIENT MEDICATED WITH NORCO PER PRN ORDER FOR C/O BACK PAIN. RATED PAIN A 7/10 WITH 10 BEING THE WORST. SEE EMAR. REINFORCED USE OF CALL LIGHT.
[2019-08-26] VITALS: BP 118/53
--- NOTE | 2019-08-26 00:15 | NUR ---
PATIENT RESTING QUIETLY. NO FURTHER C/O VOICED.
[2019-08-26 06:37] LABS: BUN 12 mg/dl (7-24)
[2019-08-26 08:00] VITALS: BP 121/66
[2019-08-26] MEDS ORDERED: PREDNISONE5 MG PO (08:04)
[2019-08-26] MEDS ORDERED: CIPRO500 MG PO (08:04)
--- NOTE | 2019-08-26 08:12 | NUR ---
DR. LEE IN TO SEE PATIENT RE: PLAN OF CARE, DISCHARGE ORDERS ENTERED. PREPARING FOR DISCHARGE.
--- NOTE | 2019-08-26 09:43 | NUR ---
Discharge instructions reviewed with patient. Patient receptive and verbalizes understanding. Follow-up care arranged. Written instructions given to patient. PATIENT IS CALLING FOR A RIDE HOME, DOES NOT WANT THE LAST DOSES OF ANTIBIOTIC, WILL START THE PO ANTIBIOTIC AT HOME, [place]OCK REMOVED. MORNING PO MEDS ADMINISTERED.
[2019-08-26 14:06] LABS: ACID FAST SPEC PROCESSING Concentration (.)
[2019-10-05 10:07] LABS: ACID FAST CULTURE Negative (.)
[2019-11-09 14:08] LABS: ORGANISM ID, MOLD Final report (.)
== END 2019-08-26 09:43 | disposition home or self-care (01) | DRG 190 ==
LOC: 4E 15:44
PROVIDERS: Internal Medicine Critical Care Medicine; ADMIT Internal Medicine
PROC: 0BC88ZZ Extirpation of Matter from Left Upper Lobe Bronchus, Via Natural or Artificial Opening Endoscopic (ICD-10-PCS; principal; 2019-08-25)
PROC: 0BC38ZZ Extirpation of Matter from Right Main Bronchus, Via Natural or Artificial Opening Endoscopic (ICD-10-PCS; principal; 2019-08-25)
PROC: 0BC58ZZ Extirpation of Matter from Right Middle Lobe Bronchus, Via Natural or Artificial Opening Endoscopic (ICD-10-PCS; principal; 2019-08-25)
PROC: 0BC68ZZ Extirpation of Matter from Right Lower Lobe Bronchus, Via Natural or Artificial Opening Endoscopic (ICD-10-PCS; principal; 2019-08-25)
PROC: 0BC18ZZ Extirpation of Matter from Trachea, Via Natural or Artificial Opening Endoscopic (ICD-10-PCS; principal; 2019-08-25)
PROC: 0BCB8ZZ Extirpation of Matter from Left Lower Lobe Bronchus, Via Natural or Artificial Opening Endoscopic (ICD-10-PCS; principal; 2019-08-25)
PROC: 0BC48ZZ Extirpation of Matter from Right Upper Lobe Bronchus, Via Natural or Artificial Opening Endoscopic (ICD-10-PCS; principal; 2019-08-25)
PROC: 0BC98ZZ Extirpation of Matter from Lingula Bronchus, Via Natural or Artificial Opening Endoscopic (ICD-10-PCS; principal; 2019-08-25)
PROC: 0BC78ZZ Extirpation of Matter from Left Main Bronchus, Via Natural or Artificial Opening Endoscopic (ICD-10-PCS; principal; 2019-08-25)
DX: J44.0 Chronic obstructive pulmonary disease with (acute) lower respiratory infection (principal); J18.1 Lobar pneumonia, unspecified organism; F33.1 Major depressive disorder, recurrent, moderate; T17.590A Other foreign object in bronchus causing asphyxiation, initial encounter; C34.90 Malignant neoplasm of unspecified part of unspecified bronchus or lung; J44.1 Chronic obstructive pulmonary disease with (acute) exacerbation; F17.210 Nicotine dependence, cigarettes, uncomplicated; J20.9 Acute bronchitis, unspecified; I73.9 Peripheral vascular disease, unspecified; M06.9 Rheumatoid arthritis, unspecified; M15.9 Polyosteoarthritis, unspecified; G89.29 Other chronic pain; E78.00 Pure hypercholesterolemia, unspecified; I25.10 Atherosclerotic heart disease of native coronary artery without angina pectoris; E03.9 Hypothyroidism, unspecified; E78.2 Mixed hyperlipidemia; M54.5 Low back pain; X58.XXXA Exposure to other specified factors, initial encounter; Y93.89 Activity, other specified; Y92.89 Other specified places as the place of occurrence of the external cause; Y99.8 Other external cause status; Z86.73 Personal history of transient ischemic attack (TIA), and cerebral infarction without residual deficits; Z87.01 Personal history of pneumonia (recurrent); Z71.6 Tobacco abuse counseling; Z90.710 Acquired absence of both cervix and uterus; Z90.49 Acquired absence of other specified parts of digestive tract; Z98.891 History of uterine scar from previous surgery; Z82.49 Family history of ischemic heart disease and other diseases of the circulatory system; Z83.3 Family history of diabetes mellitus; Z80.8 Family history of malignant neoplasm of other organs or systems; Z88.0 Allergy status to penicillin

== ENCOUNTER → 2019-10-23 | Outpatient (CLI) | payer OTHER, MEDICAID ==
[~2019-10-23] MED LIST changes: +BEVESPI AEROS10.7 GM INH; +CIPRO500 MG PO; +CYMBALTA30 MG PO; +NORCO 7.5-3251 EACH PO; +PREDNISONE5 MG PO; +PROAIR HFA8.5 GM INH
[2019-10-23 12:52] LABS: CREATININE 0.75 mg/dL (0.55-1.02)
== END | disposition home or self-care (01) ==
LOC: LAB 12:26 → CT 13:00
PROVIDERS: Otolaryngology Plastic Surgery within the Head & Neck
DX: K11.8 Other diseases of salivary glands (principal)

== ENCOUNTER → 2019-12-11 | Day surgery (SDC) | payer OTHER, MEDICAID ==
[~2019-12-11] VITALS: Ht 149.8 cm; Wt 49.4 kg
[2019-12-11 07:44] VITALS: BP 129/75
[2019-12-11 09:14] VITALS: BP 125/67
[2019-12-11 09:29] VITALS: BP 144/66
[2019-12-11 09:44] VITALS: BP 141/67
[2019-12-12 16:05] LABS: ACID FAST SPEC PROCESSING Concentration (.)
== END | disposition home or self-care (01) ==
LOC: SDC 12-08 11:00
PROVIDERS: Internal Medicine
DX: J44.1 Chronic obstructive pulmonary disease with (acute) exacerbation (principal); A31.0 Pulmonary mycobacterial infection; I25.10 Atherosclerotic heart disease of native coronary artery without angina pectoris; F32.9 Major depressive disorder, single episode, unspecified; K21.9 Gastro-esophageal reflux disease without esophagitis; R05 Cough; R59.0 Localized enlarged lymph nodes; Z98.890 Other specified postprocedural states; Z87.891 Personal history of nicotine dependence; Z86.73 Personal history of transient ischemic attack (TIA), and cerebral infarction without residual deficits; Z80.1 Family history of malignant neoplasm of trachea, bronchus and lung; Z82.49 Family history of ischemic heart disease and other diseases of the circulatory system; Z80.8 Family history of malignant neoplasm of other organs or systems

== ENCOUNTER 2019-12-13 15:00 | Inpatient (IN) | payer OTHER, MEDICAID ==
[~2019-12-13] VITALS: Ht 149.9 cm; Wt 50.8 kg
--- NOTE | 2019-12-13 15:30 | NUR ---
A 69, admitted to , under the services of AURA Carrington MD with a diagnosis of COPD EXACERBATION. Chief complaint is SHORTNESS OF BREATH. Patient arrived via bed from [place]. Monitor applied. Initial assessment completed. Vital signs taken and recorded. AURA CARRINGTON MD notified of admission to the unit. Orders received. See assessment for past medical history, medications and allergies. Patient and/or family oriented to unit. [address] visitation policy reviewed. Clothing/patient valuable form completed. PETERSON AYERS
[2019-12-13 16:00] VITALS: BP 116/60
--- NOTE | 2019-12-13 16:15 | NUR ---
CALLED DR. LEE LEFT MESSAGE ON MACHINE TO CALL FOR ADMISSION ORDERS.
--- NOTE | 2019-12-13 16:18 | NUR ---
CALLED DR. LEE LEFT MESSAGE ON HER MACHINE TO CALL
--- NOTE | 2019-12-13 16:29 | NUR ---
DR. LEE CALLED ORDERS TAKEN AND REVIEWED.
--- NOTE | 2019-12-13 16:46 | NUR ---
DR. ANDERSON CALLED AWARE OF CONSULT.
--- NOTE | 2019-12-13 17:01 | NUR ---
CALLED DR. LEE MADE AWARE PT HAS ALLERGY TO PCN, AND PHARMACY CALLED REGARDING IT. SHE STATES ITS OK TO GIVE.
[2019-12-13 17:08] LABS: BASO # 0.1 10*3/uL (0.0-0.1); BASO % 0.7 % (0.0-1.0); EOS # 0.2 10*3/uL (0.0-0.4); EOS % 1.9 % (1.0-4.0); HEMOGLOBIN 8.4 g/dl (12.0-16.0); LYMPH # 2.3 10*3/uL (1.3-4.4); LYMPH % 18.2 % (27.0-41.0); MEAN CELL VOLUME 73.8 fl (81.0-99.0); MEAN CORPUSCULAR HGB 21.4 pg (27.0-31.0); MEAN PLATELET VOLUME 9.3 fl (9.6-12.3); MONO # 0.8 10*3/uL (0.1-1.0); MONO % 6.7 % (3.0-9.0); NEUT # 8.9 10*3/uL (2.3-7.9); NEUT % 71.8 % (47.0-73.0); PLATELET COUNT AUTOMATED 487 10*3/uL (130-400); RED BLOOD COUNT 3.93 10*6/uL (4.10-5.10); RED CELL DISTRI WIDTH 19.5 % (0-14.5); WHITE BLOOD COUNT 12.5 10*3/uL (4.8-10.8)
[2019-12-13 17:20] LABS: BUN 17 mg/dl (7-24); CHLORIDE 108 mmol/L (98-107); CREATININE 0.73 mg/dL (0.55-1.02); POTASSIUM 4.5 mmol/L (3.5-5.1); SODIUM 140 mmol/L (136-145)
--- NOTE | 2019-12-13 17:30 | NUR ---
TOLERATING ROUTINE IV MED WITH NO PROBLEM. CALL LIGHT IN REACH.
[2019-12-13 20:00] VITALS: BP 116/60
--- NOTE | 2019-12-13 20:11 | NUR ---
PT ASLEEP IN BED. RESPIRATIONS EASY. NO S/S OF DISTRESS NOTED. WILL MONITOR. CALL LIGHT IN REACH.
--- NOTE | 2019-12-13 22:29 | NUR ---
PT MEDICATED WITH PO NORCO PER PRN ORDER FOR C/O CHRONIC LOWER BACK PAIN RATED 6/10. WILL MONITOR. CALL LIGHT IN REACH.
[2019-12-13 23:36] VITALS: BP 128/65
--- NOTE | 2019-12-14 00:40 | NUR ---
EARLIER MEDS APPEAR EFFECTIVE. PT ASLEEP IN BED. RESPIRATIONS EASY. NO S/S OF DISTRESS NOTED. WILL MONITOR. CALL LIGHT IN REACH.
[2019-12-14 08:00] VITALS: BP 126/72
--- NOTE | 2019-12-14 08:43 | NUR ---
PT RESTING IN BED/ NO DISTRESS NOTED. WILL MONITOR
--- NOTE | 2019-12-14 09:00 | NUR ---
Coil Rewind Machine Operator in to talk to patient. Patient states lives at home alone with family checking in on her. There are 3 porch steps and basement steps in the home. Physician: Dr. Jadyn Serrano [facility] Home health services: none Patient's level of ADLs: INDEPENDENT Patient has working utilities: yes DME: nebulizer Follow-up physician's appointment after d/c: she prefers to make her own follow up appt after discharge Does patient want to access PORTAL?: no Discharge plan discussed with patient. She lives at home alone with her family checking in on her. She is independent in her ADLs and ambulation. Discussed home health care services and she denies any home needs at this time. When medically stable she will be discharged to home. Her sister or her [id number] will provide transportation on discharge. Radha Faulkner
[2019-12-14 12:00] VITALS: BP 108/60; BP 125/73
--- NOTE | 2019-12-14 13:07 | NUR ---
[facility]
[2019-12-14 16:00] VITALS: BP 120/62
[2019-12-14 20:00] VITALS: BP 117/64
--- NOTE | 2019-12-14 21:15 | NUR ---
PRN NORCO GIVEN FOR LOWER BACK PAIN. PT STATES THAT SHE HAS A BAD BACK AND THE BEDS DO NOT HELP. WILL REASSESS EFFECTIVENESS.
--- NOTE | 2019-12-14 22:14 | NUR ---
24 HR chart check completed.
--- NOTE | 2019-12-14 22:30 | NUR ---
PRN NORCO WAS EFFECTIVE. PER PT, PAIN IS NOT BAD.
[2019-12-15] VITALS: BP 106/61
[2019-12-15 06:51] LABS: BUN 20 mg/dl (7-24); CHLORIDE 108 mmol/L (98-107); POTASSIUM 4.5 mmol/L (3.5-5.1); SODIUM 139 mmol/L (136-145)
[2019-12-15 06:53] LABS: HEMATOCRIT 27.9 % (37.0-47.0); MEAN CELL VOLUME 73.4 fl (81.0-99.0); MEAN CORPUSCULAR HGB 21.1 pg (27.0-31.0); MEAN CORPUSCULAR HGB CONC 28.7 g/dl (33.0-37.0); MEAN PLATELET VOLUME 10.1 fl (9.6-12.3); PLATELET COUNT AUTOMATED 574 10*3/uL (130-400); RED CELL DISTRI WIDTH 19.8 % (0-14.5); WHITE BLOOD COUNT 26.3 10*3/uL (4.8-10.8)
--- NOTE | 2019-12-15 07:02 | NUR ---
Shift chart check completed.
[2019-12-15 07:16] LABS: PLATELET SUFFICIENCY HIGH (NORMAL); POLYCHROMASIA SLIGHT; TOTAL CELLS COUNTED 100 #CELLS; TOXIC GRANULATION SLIGHT
[2019-12-15 07:17] LABS: MICROCYTOSIS SLIGHT; TARGET CELLS FEW
[2019-12-15 07:30] VITALS: BP 140/60
--- NOTE | 2019-12-15 09:25 | NUR ---
Valuer in to see patient. She is sitting in her bedside chair visiting with her neighbor. No new needs or request at this time. She denies any home needs. When medically stable she will be discharged to home.
--- NOTE | 2019-12-15 09:58 | NUR ---
PAIN PILL TOOM THE EDGE OFF 03/08 BUT THIS IS NORMAL - UP IN [place] AMBULATING WITH DIFFICULTY
[2019-12-15 12:00] VITALS: BP 137/73
--- NOTE | 2019-12-15 15:02 | NUR ---
PATIENT IN RADIOLOGY FOR ULTRASOUND OF THE LIVER
[2019-12-15 16:00] VITALS: BP 114/46
--- NOTE | 2019-12-15 19:30 | NUR ---
IN TO SEE PT. ASSESSMENT COMPLETE. PT COMPLAINS OF BACK PAIN AND REQUESTING SOMETHING FOR PAIN. NO OTHER COMPLAINTS AT THIS TIME. RESPIRATIONS EASY AND REGULAR AT REST. SOB WITH EXERTION. CALL LIGHT WITHIN REACH. WILL CONTINUE TO MONITOR.
--- NOTE | 2019-12-15 19:34 | NUR ---
24 HR chart check completed.
--- NOTE | 2019-12-15 19:40 | NUR ---
PT MEDICATED WITH PRN NORCO FOR BACK PAIN RATED A 6.5/10. WILL CHECK EFFECTIVENESS. CALL LIGHT WITHIN REACH.
[2019-12-15 20:00] VITALS: BP 133/62
--- NOTE | 2019-12-15 20:50 | NUR ---
PT STATES PAIN MED WAS EFFECTIVE RATING PAIN A 5/10 NOW. WILL CONTINUE TO MONITOR.
[2019-12-16] VITALS: BP 138/71
--- NOTE | 2019-12-16 02:28 | NUR ---
PT CO LOWER BACK PAIN RATED AN 8/10. MEDICATED WITH PRN NORCO. WILL CHECK EFFECTIVENESS. CALL LIGHT IN REACH.
--- NOTE | 2019-12-16 03:39 | NUR ---
PT SLEEPING. PAIN MED SEEMS TO BE EFFECTIVE. RESPIRATIONS EASY AND REGULAR. WILL MONITOR.
--- NOTE | 2019-12-16 03:57 | NUR ---
Patient sleeping. Respirations relaxed and easy. Siderails up . [place] on. TYRELL SCHMID
[2019-12-16 08:00] VITALS: BP 126/70
--- NOTE | 2019-12-16 10:52 | NUR ---
NORCO GIVEN FOR CHRONIC BACK PAIN. K-PAD ALSO APPLIED AT THIS TIME. WILL MONITOR. CALL LIGHT WITHIN REACH.
[2019-12-16 12:00] VITALS: BP 132/70
[2019-12-16] MEDS ORDERED: PREDNISONE5 MG PO (13:21)
[2019-12-16] MEDS ORDERED: NORCO 7.5-3251 EACH PO (13:23)
--- NOTE | 2019-12-16 14:20 | NUR ---
Discharge instructions reviewed with patient/family. Patient receptive and verbalizes understanding. Follow-up care arranged. Written instructions given to patient/family. CRUZ BLACKWELL
== END 2019-12-16 14:20 | disposition home or self-care (01) | DRG 178 ==
LOC: 4E 15:00
PROVIDERS: ADMIT Internal Medicine
DX: A31.0 Pulmonary mycobacterial infection (principal); J44.1 Chronic obstructive pulmonary disease with (acute) exacerbation; J44.0 Chronic obstructive pulmonary disease with (acute) lower respiratory infection; J20.9 Acute bronchitis, unspecified; M06.9 Rheumatoid arthritis, unspecified; G89.29 Other chronic pain; M54.5 Low back pain; E03.9 Hypothyroidism, unspecified; E78.5 Hyperlipidemia, unspecified; F17.210 Nicotine dependence, cigarettes, uncomplicated; I25.10 Atherosclerotic heart disease of native coronary artery without angina pectoris; Z86.73 Personal history of transient ischemic attack (TIA), and cerebral infarction without residual deficits; Z98.62 Peripheral vascular angioplasty status; Z90.49 Acquired absence of other specified parts of digestive tract; Z90.710 Acquired absence of both cervix and uterus; Z83.3 Family history of diabetes mellitus; Z80.9 Family history of malignant neoplasm, unspecified; Z82.49 Family history of ischemic heart disease and other diseases of the circulatory system

== ENCOUNTER → 2020-01-08 | Outpatient (CLI) | payer OTHER, MEDICAID | END | disposition home or self-care (01) | LOC: CT 07:42 | DX: R91.1 Solitary pulmonary nodule (principal) ==

== ENCOUNTER → 2020-03-04 | Outpatient (CLI) | payer OTHER, MEDICAID | END | disposition home or self-care (01) | LOC: RAD 08:00 | DX: R13.10 Dysphagia, unspecified (principal) ==

== ENCOUNTER 2020-06-09 18:32 | Emergency (ER) | payer OTHER, MEDICAID ==
[~2020-06-09] VITALS: Ht 149.8 cm; Wt 47.2 kg
[2020-06-09 19:54] LABS: BASO # 0.1 10*3/uL (0.0-0.1); BASO % 0.6 % (0.0-1.0); EOS # 0.2 10*3/uL (0.0-0.4); EOS % 1.7 % (1.0-4.0); LYMPH % 14.6 % (27.0-41.0); MEAN CELL VOLUME 65.1 fl (81.0-99.0); MEAN CORPUSCULAR HGB 17.9 pg (27.0-31.0); MEAN CORPUSCULAR HGB CONC 27.5 g/dl (33.0-37.0); MEAN PLATELET VOLUME 9.1 fl (9.6-12.3); MONO # 0.8 10*3/uL (0.1-1.0); MONO % 5.7 % (3.0-9.0); NEUT # 10.7 10*3/uL (2.3-7.9); NEUT % 76.8 % (47.0-73.0); PLATELET COUNT AUTOMATED 779 10*3/uL (130-400); RED CELL DISTRI WIDTH 20.3 % (0-14.5)
[2020-06-09 20:10] LABS: ALBUMIN 3.4 gm/dl (3.1-4.5); ALKALINE PHOSPHATASE 111 U/L (45-117); BUN 23 mg/dl (7-24); CHLORIDE 106 mmol/L (98-107); CREATININE 0.85 mg/dL (0.55-1.02); POTASSIUM 4.2 mmol/L (3.5-5.1); SGOT/AST 13 IU/L (3-35); SGPT/ALT 14 U/L (12-78); SODIUM 138 mmol/L (136-145); TOTAL PROTEIN 7.6 gm/dL (6.4-8.2)
[2020-06-09 20:11] LABS: TROPONIN I < 0.015 ng/ml (<0.045)
[2020-06-10] MEDS ORDERED: PREDNISONE5 M1 PO (02:22)
== END 2020-06-10 02:32 | disposition home or self-care (01) ==
LOC: ED 18:32
PROVIDERS: Emergency Medicine
DX: J44.1 Chronic obstructive pulmonary disease with (acute) exacerbation (principal); E78.00 Pure hypercholesterolemia, unspecified; F17.200 Nicotine dependence, unspecified, uncomplicated; Z88.0 Allergy status to penicillin; Z79.899 Other long term (current) drug therapy; Z79.82 Long term (current) use of aspirin

== ENCOUNTER → 2020-07-22 | Outpatient (CLI) | payer OTHER, MEDICAID ==
[~2020-07-22] MED LIST changes: +PREDNISONE5 M1 PO
[2020-07-22 12:45] LABS: BUN 23 mg/dl (7-24); CHLORIDE 107 mmol/L (98-107); POTASSIUM 4.7 mmol/L (3.5-5.1); SODIUM 138 mmol/L (136-145)
== END | disposition home or self-care (01) ==
LOC: LAB 11:57
PROVIDERS: Internal Medicine
DX: E86.0 Dehydration (principal)

== ENCOUNTER → 2020-12-26 | Outpatient (CLI) | payer OTHER, MEDICAID ==
[~2020-12-26] MED LIST changes: +REMERON15 M2 PO; +SUPER B-50 COM1 EAC1 PO
[2020-12-26 12:42] LABS: BASO # 0.1 10*3/uL (0.0-0.1); BASO % 0.9 % (0.0-1.0); EOS # 0.3 10*3/uL (0.0-0.4); HEMATOCRIT 31.9 % (37.0-47.0); LYMPH # 2.2 10*3/uL (1.3-4.4); LYMPH % 21.7 % (27.0-41.0); MEAN CELL VOLUME 64.1 fl (81.0-99.0); MEAN CORPUSCULAR HGB 16.5 pg (27.0-31.0); MEAN CORPUSCULAR HGB CONC 25.7 g/dl (33.0-37.0); MEAN PLATELET VOLUME 9.3 fl (9.6-12.3); MONO # 0.6 10*3/uL (0.1-1.0); MONO % 6.3 % (3.0-9.0); NEUT # 6.8 10*3/uL (2.3-7.9); NEUT % 67.7 % (47.0-73.0); PLATELET COUNT AUTOMATED 656 10*3/uL (130-400); RED BLOOD COUNT 4.98 10*6/uL (4.10-5.10); RED CELL DISTRI WIDTH 22.2 % (0-14.5)
[2020-12-26 13:11] LABS: ALBUMIN 3.6 gm/dl (3.1-4.5); ALKALINE PHOSPHATASE 92 U/L (45-117); BUN 18 mg/dl (7-24); CHLORIDE 107 mmol/L (98-107); CHOLESTEROL 142 mg/dL (<200); CREATININE 0.65 mg/dL (0.55-1.02); FREE T4 1.86 ng/dl (0.76-1.46); HDL CHOLESTEROL 28 mg/dl (40-60); LDL CHOLESTEROL 60 mg/dL (9-159); POTASSIUM 4.2 mmol/L (3.5-5.1); SGOT/AST 12 IU/L (3-35); SGPT/ALT 13 U/L (12-78); SODIUM 139 mmol/L (136-145); TOTAL PROTEIN 7.4 gm/dL (6.4-8.2); TRIGLYCERIDES 271 mg/dl (<150); VLDL CHOLESTEROL 54 mg/dL (6-40)
[2020-12-26 13:16] LABS: THYROID STIM HORMONE (HS) 0.007 uIU/ml (0.358-4.75)
[2020-12-26 13:41] LABS: VITAMIN D, 25-HYDROXY 22.2 ng/mL (30-100)
== END | disposition home or self-care (01) ==
LOC: LAB 12:28
PROVIDERS: ATTEND Internal Medicine
DX: Z00.00 Encounter for general adult medical examination without abnormal findings (principal); E03.9 Hypothyroidism, unspecified; I10 Essential (primary) hypertension; E78.2 Mixed hyperlipidemia; E55.9 Vitamin D deficiency, unspecified

== ENCOUNTER → 2021-01-01 | Outpatient (CLI) | payer OTHER, MEDICAID | END | disposition home or self-care (01) | LOC: LAB 12:29 | PROVIDERS: ATTEND Internal Medicine | DX: D64.9 Anemia, unspecified (principal) ==

== ENCOUNTER → 2021-02-28 | Outpatient (CLI) | payer OTHER, MEDICAID ==
[2021-02-28 12:24] LABS: HEMATOCRIT 41.1 % (37.0-47.0); MEAN CELL VOLUME 81.1 fl (81.0-99.0); MEAN CORPUSCULAR HGB 24.5 pg (27.0-31.0); MEAN CORPUSCULAR HGB CONC 30.2 g/dl (33.0-37.0); MEAN PLATELET VOLUME 10.4 fl (9.6-12.3); PLATELET COUNT AUTOMATED 391 10*3/uL (130-400); RED BLOOD COUNT 5.07 10*6/uL (4.10-5.10); WHITE BLOOD COUNT 9.4 10*3/uL (4.8-10.8)
[2021-02-28 13:06] LABS: PLATELET SUFFICIENCY NORMAL (NORMAL); TOTAL CELLS COUNTED 100 #CELLS
[2021-02-28 13:08] LABS: OVALOCYTES FEW
== END | disposition home or self-care (01) ==
LOC: LAB 12:05
PROVIDERS: ATTEND Internal Medicine
DX: E03.9 Hypothyroidism, unspecified (principal); D64.9 Anemia, unspecified

== ENCOUNTER → 2021-03-20 | Outpatient (CLI) | payer OTHER, MEDICAID ==
[2021-03-20 12:01] LABS: BASO # 0.1 10*3/uL (0.0-0.1); BASO % 0.9 % (0.0-1.0); EOS # 0.2 10*3/uL (0.0-0.4); EOS % 2.3 % (1.0-4.0); HEMATOCRIT 42.8 % (37.0-47.0); LYMPH # 2.2 10*3/uL (1.3-4.4); LYMPH % 21.5 % (27.0-41.0); MEAN CELL VOLUME 85.4 fl (81.0-99.0); MEAN CORPUSCULAR HGB 25.3 pg (27.0-31.0); MEAN CORPUSCULAR HGB CONC 29.7 g/dl (33.0-37.0); MONO # 0.5 10*3/uL (0.1-1.0); MONO % 5.3 % (3.0-9.0); NEUT % 69.5 % (47.0-73.0); PLATELET COUNT AUTOMATED 445 10*3/uL (130-400); RED BLOOD COUNT 5.01 10*6/uL (4.10-5.10); RED CELL DISTRI WIDTH 28.2 % (0-14.5); WHITE BLOOD COUNT 10.1 10*3/uL (4.8-10.8)
== END | disposition home or self-care (01) ==
LOC: LAB 11:21
PROVIDERS: ATTEND Internal Medicine
DX: M54.9 Dorsalgia, unspecified (principal); D64.9 Anemia, unspecified

== ENCOUNTER 2021-06-12 19:00 | Inpatient (IN) | payer OTHER, MEDICAID ==
[~2021-06-12] VITALS: Ht 149.8 cm; Wt 41.3 kg
[2021-06-12 19:14] VITALS: BP 140/74
[2021-06-12 19:45] LABS: BASO % 0.2 % (0.0-1.0); HEMATOCRIT 30.9 % (37.0-47.0); LYMPH # 1.3 10*3/uL (1.3-4.4); LYMPH % 7.2 % (27.0-41.0); MEAN CELL VOLUME 80.5 fl (81.0-99.0); MEAN CORPUSCULAR HGB 24.2 pg (27.0-31.0); MEAN CORPUSCULAR HGB CONC 30.1 g/dl (33.0-37.0); MEAN PLATELET VOLUME 9.1 fl (9.6-12.3); MONO # 0.7 10*3/uL (0.1-1.0); MONO % 3.5 % (3.0-9.0); NEUT # 16.3 10*3/uL (2.3-7.9); NEUT % 88.3 % (47.0-73.0); PLATELET COUNT AUTOMATED 658 10*3/uL (130-400); RED BLOOD COUNT 3.84 10*6/uL (4.10-5.10); RED CELL DISTRI WIDTH 16.4 % (0-14.5); WHITE BLOOD COUNT 18.4 10*3/uL (4.8-10.8)
[2021-06-12 20:01] LABS: ALBUMIN 3.8 gm/dl (3.1-4.5); ALKALINE PHOSPHATASE 87 U/L (45-117); BUN 22 mg/dl (7-24); CHLORIDE 108 mmol/L (98-107); CREATININE 0.95 mg/dL (0.55-1.02); SGOT/AST 12 IU/L (3-35); SGPT/ALT 14 U/L (12-78); SODIUM 137 mmol/L (136-145); TOTAL PROTEIN 7.5 gm/dL (6.4-8.2)
[2021-06-12] MEDS ORDERED: Synthroid,Levo88 MCG PO (21:23)
[2021-06-12 22:47] VITALS: BP 133/62
[2021-06-13] VITALS (7 sets, daily range): BP systolic 108–132; BP diastolic 48–72
[2021-06-14 00:03] VITALS: BP 103/51
[2021-06-14 08:00] VITALS: BP 128/50
[2021-06-14 12:00] VITALS: BP 109/49
[2021-06-14 12:10] LABS: ACID FAST SPEC PROCESSING Concentration (.)
[2021-06-14 16:00] VITALS: BP 122/44
[2021-06-14] MEDS ORDERED: SEPTDS PO (16:12)
[2021-06-14] MEDS ORDERED: MEDROL DOSEPAK4 MG PO (16:12)
[2021-07-26 08:08] LABS: ACID FAST CULTURE Negative (.)
== END 2021-06-14 16:40 | disposition home or self-care (01) | DRG 202 ==
LOC: ED 19:00 → EDHOLD 20:46 → 4E 20:46
PROVIDERS: Internal Medicine; Internal Medicine Critical Care Medicine; ADMIT Internal Medicine; ATTEND Internal Medicine
PROC: 0BC18ZZ Extirpation of Matter from Trachea, Via Natural or Artificial Opening Endoscopic (ICD-10-PCS; principal; 2021-06-13)
PROC: 0BC98ZZ Extirpation of Matter from Lingula Bronchus, Via Natural or Artificial Opening Endoscopic (ICD-10-PCS; 2021-06-13)
PROC: 0BC48ZZ Extirpation of Matter from Right Upper Lobe Bronchus, Via Natural or Artificial Opening Endoscopic (ICD-10-PCS; 2021-06-13)
PROC: 0BC88ZZ Extirpation of Matter from Left Upper Lobe Bronchus, Via Natural or Artificial Opening Endoscopic (ICD-10-PCS; 2021-06-13)
PROC: 0BC58ZZ Extirpation of Matter from Right Middle Lobe Bronchus, Via Natural or Artificial Opening Endoscopic (ICD-10-PCS; 2021-06-13)
PROC: 0BC38ZZ Extirpation of Matter from Right Main Bronchus, Via Natural or Artificial Opening Endoscopic (ICD-10-PCS; 2021-06-13)
PROC: 0BC78ZZ Extirpation of Matter from Left Main Bronchus, Via Natural or Artificial Opening Endoscopic (ICD-10-PCS; 2021-06-13)
PROC: 0BC68ZZ Extirpation of Matter from Right Lower Lobe Bronchus, Via Natural or Artificial Opening Endoscopic (ICD-10-PCS; 2021-06-13)
PROC: 0BCB8ZZ Extirpation of Matter from Left Lower Lobe Bronchus, Via Natural or Artificial Opening Endoscopic (ICD-10-PCS; 2021-06-13)
DX: J20.9 Acute bronchitis, unspecified (principal); J44.0 Chronic obstructive pulmonary disease with (acute) lower respiratory infection; J44.1 Chronic obstructive pulmonary disease with (acute) exacerbation; G89.4 Chronic pain syndrome; M15.9 Polyosteoarthritis, unspecified; E78.2 Mixed hyperlipidemia; D50.9 Iron deficiency anemia, unspecified; E89.0 Postprocedural hypothyroidism; I73.9 Peripheral vascular disease, unspecified; F17.210 Nicotine dependence, cigarettes, uncomplicated; I25.10 Atherosclerotic heart disease of native coronary artery without angina pectoris; M06.9 Rheumatoid arthritis, unspecified; Z86.73 Personal history of transient ischemic attack (TIA), and cerebral infarction without residual deficits; Z88.0 Allergy status to penicillin; Z90.710 Acquired absence of both cervix and uterus; Z98.891 History of uterine scar from previous surgery; Z90.49 Acquired absence of other specified parts of digestive tract; Z83.3 Family history of diabetes mellitus; Z82.49 Family history of ischemic heart disease and other diseases of the circulatory system; Z80.8 Family history of malignant neoplasm of other organs or systems; Z71.6 Tobacco abuse counseling

== ENCOUNTER → 2021-08-11 | Outpatient (CLI) | payer OTHER, MEDICAID ==
[~2021-08-11] MED LIST changes: +SEPTDS PO; +Synthroid,Levo88 MCG PO
[2021-08-11 16:07] LABS: BASO # 0.1 10*3/uL (0.0-0.1); BASO % 0.7 % (0.0-1.0); EOS # 0.2 10*3/uL (0.0-0.4); EOS % 1.7 % (1.0-4.0); HEMATOCRIT 39.3 % (37.0-47.0); LYMPH # 3.5 10*3/uL (1.3-4.4); MEAN CELL VOLUME 90.6 fl (81.0-99.0); MEAN CORPUSCULAR HGB 27.6 pg (27.0-31.0); MEAN CORPUSCULAR HGB CONC 30.5 g/dl (33.0-37.0); MEAN PLATELET VOLUME 10.3 fl (9.6-12.3); MONO # 0.7 10*3/uL (0.1-1.0); MONO % 5.2 % (3.0-9.0); NEUT # 8.7 10*3/uL (2.3-7.9); NEUT % 65.4 % (47.0-73.0); PLATELET COUNT AUTOMATED 477 10*3/uL (130-400); RED BLOOD COUNT 4.34 10*6/uL (4.10-5.10); RED CELL DISTRI WIDTH 23.5 % (0-14.5); WHITE BLOOD COUNT 13.3 10*3/uL (4.8-10.8)
== END | disposition home or self-care (01) ==
LOC: LAB 15:38
PROVIDERS: ATTEND Internal Medicine Gastroenterology
DX: K55.21 Angiodysplasia of colon with hemorrhage (principal)

== ENCOUNTER → 2021-12-03 | Outpatient (CLI) | payer OTHER, MEDICAID | END | disposition home or self-care (01) | LOC: COVID19 15:35 | PROVIDERS: ATTEND Internal Medicine | DX: Z20.822 Contact with and (suspected) exposure to COVID-19 (principal) ==

== ENCOUNTER → 2022-03-31 | Outpatient (CLI) | payer OTHER, MEDICAID | END | disposition home or self-care (01) | LOC: RAD 08:35 | PROVIDERS: ATTEND Internal Medicine | DX: M81.0 Age-related osteoporosis without current pathological fracture (principal) ==

== ENCOUNTER → 2022-05-13 | Outpatient (CLI) | payer OTHER, MEDICAID ==
[~2022-05-13] MED LIST changes: +ALENDRONATE SOD70 M1 PO; +B COMPLEX1 EACH PO; +FLUCONAZOLE100 MG PO; +NEURONTIN300 MG PO
== END | disposition home or self-care (01) ==
LOC: MRI 04-15 00:32
PROVIDERS: ATTEND Internal Medicine
DX: R51.9 Headache, unspecified (principal); R47.81 Slurred speech; R42 Dizziness and giddiness

== ENCOUNTER → 2022-08-17 | Outpatient (CLI) | payer OTHER, MEDICAID ==
[2022-08-17 15:53] LABS: BASO # 0.1 10*3/uL (0.0-0.1); BASO % 0.9 % (0.0-1.0); EOS # 0.2 10*3/uL (0.0-0.4); EOS % 2.3 % (1.0-4.0); HEMATOCRIT 31.5 % (37.0-47.0); LYMPH # 1.8 10*3/uL (1.3-4.4); LYMPH % 17.1 % (27.0-41.0); MEAN CELL VOLUME 73.1 fl (81.0-99.0); MEAN CORPUSCULAR HGB 21.1 pg (27.0-31.0); MEAN CORPUSCULAR HGB CONC 28.9 g/dl (33.0-37.0); MEAN PLATELET VOLUME 9.3 fl (9.6-12.3); MONO # 0.5 10*3/uL (0.1-1.0); MONO % 4.9 % (3.0-9.0); NEUT # 7.9 10*3/uL (2.3-7.9); NEUT % 74.4 % (47.0-73.0); PLATELET COUNT AUTOMATED 495 10*3/uL (130-400); RED BLOOD COUNT 4.31 10*6/uL (4.10-5.10); RED CELL DISTRI WIDTH 18.6 % (0-14.5); WHITE BLOOD COUNT 10.6 10*3/uL (4.8-10.8)
[2022-08-17 16:19] LABS: ALKALINE PHOSPHATASE 88 U/L (45-117); BUN 20 mg/dl (7-24); CHLORIDE 108 mmol/L (98-107); CHOLESTEROL 236 mg/dL (<200); CREATININE 0.78 mg/dL (0.55-1.02); POTASSIUM 4.6 mmol/L (3.5-5.1); SGOT/AST 18 IU/L (3-35); SODIUM 138 mmol/L (136-145); TOTAL PROTEIN 7.3 gm/dL (6.4-8.2)
[2022-08-17 16:25] LABS: FREE T4 1.57 ng/dl (0.76-1.46)
[2022-08-17 16:41] LABS: TRIGLYCERIDES 1147 mg/dl (<150)
[2022-08-17 16:43] LABS: VITAMIN D, 25-HYDROXY 10.5 ng/mL (30-100)
[2022-08-17 17:38] LABS: SGPT/ALT 14 U/L (12-78)
== END | disposition home or self-care (01) ==
LOC: LAB 15:17
PROVIDERS: ATTEND Internal Medicine
DX: I10 Essential (primary) hypertension (principal); E03.9 Hypothyroidism, unspecified; E55.9 Vitamin D deficiency, unspecified; Z13.0 Encounter for screening for diseases of the blood and blood-forming organs and certain disorders involving the immune mechanism; Z13.89 Encounter for screening for other disorder; R70.0 Elevated erythrocyte sedimentation rate; Z13.1 Encounter for screening for diabetes mellitus; Z13.21 Encounter for screening for nutritional disorder; Z13.220 Encounter for screening for lipoid disorders; Z13.228 Encounter for screening for other metabolic disorders; Z13.29 Encounter for screening for other suspected endocrine disorder; Z13.6 Encounter for screening for cardiovascular disorders; Z13.9 Encounter for screening, unspecified

== ENCOUNTER → 2022-10-15 | Outpatient (CLI) | payer OTHER, MEDICAID ==
[2022-10-15 14:18] LABS: BASO # 0.1 10*3/uL (0.0-0.1); BASO % 0.6 % (0.0-1.0); EOS # 0.2 10*3/uL (0.0-0.4); EOS % 1.4 % (1.0-4.0); HEMATOCRIT 32.2 % (37.0-47.0); LYMPH # 1.8 10*3/uL (1.3-4.4); MEAN CELL VOLUME 70.3 fl (81.0-99.0); MEAN CORPUSCULAR HGB 20.1 pg (27.0-31.0); MEAN CORPUSCULAR HGB CONC 28.6 g/dl (33.0-37.0); MEAN PLATELET VOLUME 8.8 fl (9.6-12.3); MONO # 0.6 10*3/uL (0.1-1.0); NEUT # 8.5 10*3/uL (2.3-7.9); NEUT % 76.6 % (47.0-73.0); PLATELET COUNT AUTOMATED 550 10*3/uL (130-400); RED BLOOD COUNT 4.58 10*6/uL (4.10-5.10); RED CELL DISTRI WIDTH 19.9 % (0-14.5); WHITE BLOOD COUNT 11.1 10*3/uL (4.8-10.8)
== END | disposition home or self-care (01) ==
LOC: LAB 13:44
PROVIDERS: ATTEND Internal Medicine
DX: Z13.220 Encounter for screening for lipoid disorders (principal); R53.81 Other malaise; D51.9 Vitamin B12 deficiency anemia, unspecified; R79.89 Other specified abnormal findings of blood chemistry; E55.9 Vitamin D deficiency, unspecified; E03.9 Hypothyroidism, unspecified; D52.9 Folate deficiency anemia, unspecified; Z13.0 Encounter for screening for diseases of the blood and blood-forming organs and certain disorders involving the immune mechanism; Z13.1 Encounter for screening for diabetes mellitus; Z13.21 Encounter for screening for nutritional disorder; Z13.228 Encounter for screening for other metabolic disorders; Z13.6 Encounter for screening for cardiovascular disorders; Z13.89 Encounter for screening for other disorder

== ENCOUNTER → 2022-10-26 | Outpatient (CLI) | payer OTHER, MEDICAID ==
[2022-10-26 12:57] LABS: BASO # 0.1 10*3/uL (0.0-0.1); BASO % 0.8 % (0.0-1.0); EOS # 0.1 10*3/uL (0.0-0.4); EOS % 0.8 % (1.0-4.0); HEMATOCRIT 33.3 % (37.0-47.0); LYMPH # 2.1 10*3/uL (1.3-4.4); LYMPH % 15.8 % (27.0-41.0); MEAN CELL VOLUME 70.6 fl (81.0-99.0); MEAN CORPUSCULAR HGB 20.1 pg (27.0-31.0); MEAN CORPUSCULAR HGB CONC 28.5 g/dl (33.0-37.0); MEAN PLATELET VOLUME 8.8 fl (9.6-12.3); MONO # 0.5 10*3/uL (0.1-1.0); MONO % 3.5 % (3.0-9.0); NEUT # 10.5 10*3/uL (2.3-7.9); NEUT % 78.4 % (47.0-73.0); PLATELET COUNT AUTOMATED 509 10*3/uL (130-400); RED BLOOD COUNT 4.72 10*6/uL (4.10-5.10); RED CELL DISTRI WIDTH 19.3 % (0-14.5); WHITE BLOOD COUNT 13.4 10*3/uL (4.8-10.8)
[2022-10-26 13:15] LABS: ALKALINE PHOSPHATASE 96 U/L (45-117); BUN 20 mg/dl (7-24); CHLORIDE 105 mmol/L (98-107); CREATININE 0.76 mg/dL (0.55-1.02); POTASSIUM 4.1 mmol/L (3.5-5.1); SGPT/ALT 17 U/L (12-78); SODIUM 133 mmol/L (136-145); TOTAL PROTEIN 8.2 gm/dL (6.4-8.2)
[2022-10-28 15:04] LABS: METHYLMALONIC ACID 134 nmol/L (0-378)
== END | disposition home or self-care (01) ==
LOC: LAB 12:26
PROVIDERS: ATTEND Internal Medicine
DX: D50.9 Iron deficiency anemia, unspecified (principal)

== ENCOUNTER → 2023-01-06 | Outpatient (CLI) | payer OTHER, MEDICAID | END | disposition home or self-care (01) | LOC: LAB 15:31 | PROVIDERS: ATTEND Internal Medicine Gastroenterology | DX: D50.0 Iron deficiency anemia secondary to blood loss (chronic) (principal) ==

== ENCOUNTER → 2023-01-27 | Day surgery (SDC) | payer OTHER, MEDICAID ==
[~2023-01-27] VITALS: Ht 149.8 cm; Wt 42.6 kg
[~2023-01-27] MED LIST changes: +FEOSOL325 MG PO; +VITAMIN D3250 MC1 PO
[2023-01-27 11:57] VITALS: BP 93/63
[2023-01-27 13:45] VITALS: BP 126/62
[2023-01-27 14:00] VITALS: BP 110/68
[2023-01-27 14:15] VITALS: BP 116/65
== END | disposition home or self-care (01) ==
LOC: SDC 01-22 09:30
PROVIDERS: ATTEND Ophthalmology
DX: H25.812 Combined forms of age-related cataract, left eye (principal); E78.00 Pure hypercholesterolemia, unspecified; J43.9 Emphysema, unspecified; I25.10 Atherosclerotic heart disease of native coronary artery without angina pectoris; Z86.73 Personal history of transient ischemic attack (TIA), and cerebral infarction without residual deficits; F17.210 Nicotine dependence, cigarettes, uncomplicated; Z79.899 Other long term (current) drug therapy; Z88.0 Allergy status to penicillin

== ENCOUNTER → 2023-03-09 | Outpatient (CLI) | payer OTHER, MEDICAID ==
[~2023-03-09] MED LIST changes: +FENOFIBRATE145 M1 PO; +HYDROCODONE-AC1 EAC2 PO; +LEVOTHYROXINE100 MC1 PO; +MECLIZINE HCL25 M2 PO; +WELLBUTRIN SR100 MG PO; +ZETIA10 MG PO
[2023-03-09 14:35] LABS: BASO # 0.1 10*3/uL (0.0-0.1); BASO % 0.7 % (0.0-1.0); EOS # 0.2 10*3/uL (0.0-0.4); EOS % 2.4 % (1.0-4.0); HEMATOCRIT 39.4 % (37.0-47.0); LYMPH # 2.4 10*3/uL (1.3-4.4); LYMPH % 28.8 % (27.0-41.0); MEAN CELL VOLUME 95.6 fl (81.0-99.0); MEAN CORPUSCULAR HGB 31.3 pg (27.0-31.0); MEAN CORPUSCULAR HGB CONC 32.7 g/dl (33.0-37.0); MEAN PLATELET VOLUME 10.1 fl (9.6-12.3); MONO # 0.4 10*3/uL (0.1-1.0); MONO % 5.2 % (3.0-9.0); NEUT # 5.2 10*3/uL (2.3-7.9); NEUT % 62.4 % (47.0-73.0); PLATELET COUNT AUTOMATED 343 10*3/uL (130-400); RED BLOOD COUNT 4.12 10*6/uL (4.10-5.10); RED CELL DISTRI WIDTH 16.1 % (0-14.5); WHITE BLOOD COUNT 8.3 10*3/uL (4.8-10.8)
== END | disposition home or self-care (01) ==
LOC: LAB 01:15
PROVIDERS: ATTEND Internal Medicine
DX: D64.9 Anemia, unspecified (principal); R53.1 Weakness; R79.89 Other specified abnormal findings of blood chemistry; E55.9 Vitamin D deficiency, unspecified

== ENCOUNTER → 2023-03-31 | Day surgery (SDC) | payer OTHER, MEDICAID ==
[~2023-03-31] VITALS: Ht 149.8 cm; Wt 42.6 kg
[~2023-03-31] MED LIST changes: +MIDODRINE HCL5 M1 PO
[2023-03-31 10:20] VITALS: BP 127/60
[2023-03-31 12:16] VITALS: BP 123/49
[2023-03-31 12:30] VITALS: BP 157/78
[2023-03-31 12:45] VITALS: BP 147/69
== END | disposition home or self-care (01) ==
LOC: SDC 03-26 14:00
PROVIDERS: ATTEND Ophthalmology
DX: H25.811 Combined forms of age-related cataract, right eye (principal); E78.00 Pure hypercholesterolemia, unspecified; J43.9 Emphysema, unspecified; Z86.73 Personal history of transient ischemic attack (TIA), and cerebral infarction without residual deficits; I25.10 Atherosclerotic heart disease of native coronary artery without angina pectoris; F17.210 Nicotine dependence, cigarettes, uncomplicated; Z98.1 Arthrodesis status; Z79.899 Other long term (current) drug therapy

== ENCOUNTER → 2023-05-25 | Outpatient (CLI) | payer MEDICARE, MEDICAID ==
[2023-05-25 14:52] LABS: BASO # 0.1 10*3/uL (0.0-0.1); BASO % 0.7 % (0.0-1.0); EOS # 0.1 10*3/uL (0.0-0.4); EOS % 1.2 % (1.0-4.0); HEMATOCRIT 40.2 % (37.0-47.0); LYMPH # 1.9 10*3/uL (1.3-4.4); LYMPH % 17.3 % (27.0-41.0); MEAN CELL VOLUME 97.3 fl (81.0-99.0); MEAN CORPUSCULAR HGB 32.2 pg (27.0-31.0); MEAN CORPUSCULAR HGB CONC 33.1 g/dl (33.0-37.0); MEAN PLATELET VOLUME 10.9 fl (9.6-12.3); MONO # 0.5 10*3/uL (0.1-1.0); MONO % 4.9 % (3.0-9.0); NEUT # 8.2 10*3/uL (2.3-7.9); NEUT % 75.3 % (47.0-73.0); PLATELET COUNT AUTOMATED 404 10*3/uL (130-400); RED BLOOD COUNT 4.13 10*6/uL (4.10-5.10); RED CELL DISTRI WIDTH 13.6 % (0-14.5); WHITE BLOOD COUNT 10.9 10*3/uL (4.8-10.8)
[2023-05-25 15:28] LABS: ALKALINE PHOSPHATASE 67 U/L (46-116); BUN 20 mg/dl (9-23); CHLORIDE 105 mmol/L (98-107); CHOLESTEROL 195 mg/dL (<200); FREE T4 1.96 ng/dl (0.89-1.76); POTASSIUM 4.4 mmol/L (3.4-5.1); SGPT/ALT 10 U/L (10-49); TOTAL PROTEIN 6.7 gm/dL (6.0-8.0); TRIGLYCERIDES 538 mg/dl (<150); VITAMIN D, 25-HYDROXY 26.4 ng/mL (30-100)
[2023-05-25 15:30] LABS: THYROID STIM HORMONE (HS) 0.022 uIU/ml (0.550-4.780)
== END ==
LOC: LAB 14:30
PROVIDERS: ATTEND Internal Medicine
DX: Z13.0 Encounter for screening for diseases of the blood and blood-forming organs and certain disorders involving the immune mechanism (principal); Z13.1 Encounter for screening for diabetes mellitus; Z12.31 Encounter for screening mammogram for malignant neoplasm of breast; Z13.220 Encounter for screening for lipoid disorders; Z13.228 Encounter for screening for other metabolic disorders; Z13.29 Encounter for screening for other suspected endocrine disorder; E55.9 Vitamin D deficiency, unspecified; Z13.6 Encounter for screening for cardiovascular disorders; Z13.89 Encounter for screening for other disorder; Z13.9 Encounter for screening, unspecified; F41.1 Generalized anxiety disorder; I10 Essential (primary) hypertension; F33.1 Major depressive disorder, recurrent, moderate; E78.2 Mixed hyperlipidemia

== ENCOUNTER → 2023-09-08 | Outpatient (CLI) | payer MEDICARE, MEDICAID | END | disposition home or self-care (01) | LOC: LAB 01:48 | PROVIDERS: ATTEND Internal Medicine | DX: Z13.0 Encounter for screening for diseases of the blood and blood-forming organs and certain disorders involving the immune mechanism (principal); Z13.89 Encounter for screening for other disorder; Z13.6 Encounter for screening for cardiovascular disorders; Z13.228 Encounter for screening for other metabolic disorders; Z13.220 Encounter for screening for lipoid disorders; Z13.21 Encounter for screening for nutritional disorder; R53.81 Other malaise; R79.89 Other specified abnormal findings of blood chemistry; E55.9 Vitamin D deficiency, unspecified; D51.9 Vitamin B12 deficiency anemia, unspecified; E03.9 Hypothyroidism, unspecified; D52.9 Folate deficiency anemia, unspecified ==

== ENCOUNTER → 2023-09-14 | Outpatient (CLI) | payer MEDICARE, MEDICAID | END | disposition home or self-care (01) | LOC: CT 02:06 | PROVIDERS: ATTEND Internal Medicine | DX: I73.9 Peripheral vascular disease, unspecified (principal); Z95.828 Presence of other vascular implants and grafts ==

== ENCOUNTER 2023-11-08 14:38 | Emergency (ER) | payer MEDICARE, MEDICAID ==
[~2023-11-08] VITALS: Ht 147.3 cm; Wt 38.6 kg
[2023-11-08] MEDS ORDERED: ZOLOFT50 MG PO (14:53)
[2023-11-08 15:35] LABS: BASO # 0.1 10*3/uL (0.0-0.1); BASO % 0.4 % (0.0-1.0); EOS # 0.2 10*3/uL (0.0-0.4); EOS % 1.3 % (1.0-4.0); HEMATOCRIT 45.7 % (37.0-47.0); LYMPH # 1.9 10*3/uL (1.3-4.4); LYMPH % 13.9 % (27.0-41.0); MEAN CELL VOLUME 93.1 fl (81.0-99.0); MEAN CORPUSCULAR HGB 30.8 pg (27.0-31.0); MEAN PLATELET VOLUME 10.8 fl (9.6-12.3); MONO # 0.8 10*3/uL (0.1-1.0); MONO % 5.7 % (3.0-9.0); NEUT # 10.6 10*3/uL (2.3-7.9); NEUT % 78.2 % (47.0-73.0); PLATELET COUNT AUTOMATED 386 10*3/uL (130-400); RED BLOOD COUNT 4.91 10*6/uL (4.10-5.10); RED CELL DISTRI WIDTH 13.9 % (0-14.5); WHITE BLOOD COUNT 13.6 10*3/uL (4.8-10.8)
[2023-11-08 15:39] LABS: BILIRUBIN Negative (Negative); BLOOD Negative (Negative); CLARITY Cloudy (Clear); COLOR Yellow (Yellow); GLUCOSE Trace (Negative); KETONE Trace (Negative); LEUKO ESTERASE Negative (Negative); NITRITE Negative (Negative)
[2023-11-08 15:54] LABS: BACTERIA 1+; EPITHELIAL CELLS 16-20; MUCOUS 1+
[2023-11-08 15:55] LABS: ALKALINE PHOSPHATASE 74 U/L (46-116); BUN 15 mg/dl (9-23); CHLORIDE 107 mmol/L (98-107); LIPASE 38 U/L (12-53); POTASSIUM 4.2 mmol/L (3.4-5.1); SGPT/ALT 12 U/L (5-49); TOTAL PROTEIN 6.8 gm/dL (6.0-8.0)
[2023-11-08] MEDS ORDERED: ONDANSETRON4 MG SL (17:52)
== END 2023-11-08 18:05 | disposition home or self-care (01) ==
LOC: ED 14:38
PROVIDERS: Nurse Practitioner Family
DX: K52.9 Noninfective gastroenteritis and colitis, unspecified (principal); R73.9 Hyperglycemia, unspecified; J44.9 Chronic obstructive pulmonary disease, unspecified; F32.A Depression, unspecified; F17.200 Nicotine dependence, unspecified, uncomplicated; Z88.0 Allergy status to penicillin; Z79.899 Other long term (current) drug therapy; Z90.711 Acquired absence of uterus with remaining cervical stump; Z90.89 Acquired absence of other organs

== ENCOUNTER → 2023-12-02 | Outpatient (CLI) | payer MEDICARE, MEDICAID ==
[~2023-12-02] MED LIST changes: +ONDANSETRON4 MG SL; +ZOLOFT50 MG PO
[2023-12-02 12:35] LABS: BASO # 0.1 10*3/uL (0.0-0.1); BASO % 0.8 % (0.0-1.0); EOS # 0.4 10*3/uL (0.0-0.4); EOS % 3.4 % (1.0-4.0); HEMATOCRIT 47.5 % (37.0-47.0); LYMPH % 23.2 % (27.0-41.0); MEAN CELL VOLUME 93.9 fl (81.0-99.0); MEAN PLATELET VOLUME 10.6 fl (9.6-12.3); MONO # 0.7 10*3/uL (0.1-1.0); NEUT # 8.7 10*3/uL (2.3-7.9); NEUT % 66.4 % (47.0-73.0); PLATELET COUNT AUTOMATED 451 10*3/uL (130-400); RED BLOOD COUNT 5.06 10*6/uL (4.10-5.10); RED CELL DISTRI WIDTH 14.5 % (0-14.5)
[2023-12-02 13:01] LABS: BUN 18 mg/dl (9-23); CHLORIDE 107 mmol/L (98-107); POTASSIUM 5.4 mmol/L (3.4-5.1)
== END | disposition home or self-care (01) ==
LOC: LAB 11:28
PROVIDERS: ATTEND Internal Medicine Cardiovascular Disease
DX: I73.9 Peripheral vascular disease, unspecified (principal); Z79.899 Other long term (current) drug therapy

== ENCOUNTER → 2024-03-15 | Outpatient (CLI) | payer MEDICARE, MEDICAID | END | disposition home or self-care (01) | LOC: ORTHO 03:34 | PROVIDERS: ATTEND Orthopaedic Surgery | DX: M85.852 Other specified disorders of bone density and structure, left thigh (principal); M16.12 Unilateral primary osteoarthritis, left hip ==

== ENCOUNTER → 2024-03-30 | Day surgery (SDC) | payer MEDICARE, MEDICAID ==
[~2024-03-30] MED LIST changes: +BUPIVACAINE 0.25% 10 ML VIAL IJ ONE; +BUPIVACAINE 0.25% 10 ML VIAL ONE; +Lidocaine Hydrochloride 30 ML VIAL IJ ONE; +Lidocaine Hydrochloride 30 ML VIAL ONE
[2024-03-30 07:35] VITALS: BP 147/69
[2024-03-30 07:45] VITALS: BP 148/86
[2024-03-30 07:53] VITALS: BP 152/83
[2024-03-30 08:05] VITALS: BP 140/62
== END | disposition home or self-care (01) ==
LOC: SDC 03-27 12:30
PROVIDERS: ATTEND Orthopaedic Surgery
DX: M16.12 Unilateral primary osteoarthritis, left hip (principal); E78.00 Pure hypercholesterolemia, unspecified; E03.9 Hypothyroidism, unspecified; E78.1 Pure hyperglyceridemia; M54.9 Dorsalgia, unspecified; G89.29 Other chronic pain; M85.80 Other specified disorders of bone density and structure, unspecified site; M25.552 Pain in left hip; M81.0 Age-related osteoporosis without current pathological fracture; F17.210 Nicotine dependence, cigarettes, uncomplicated; Z80.9 Family history of malignant neoplasm, unspecified

== ENCOUNTER → 2024-04-07 | Outpatient (CLI) | payer MEDICARE, MEDICAID ==
[~2024-04-07] MED LIST changes: -BUPIVACAINE 0.25% 10 ML VIAL IJ ONE; -BUPIVACAINE 0.25% 10 ML VIAL ONE; -Lidocaine Hydrochloride 30 ML VIAL IJ ONE; -Lidocaine Hydrochloride 30 ML VIAL ONE
[2024-04-07 11:02] LABS: BASO # 0.1 10*3/uL (0.0-0.1); EOS # 0.4 10*3/uL (0.0-0.4); EOS % 3.4 % (1.0-4.0); LYMPH # 2.3 10*3/uL (1.3-4.4); LYMPH % 20.4 % (27.0-41.0); MEAN CELL VOLUME 94.3 fl (81.0-99.0); MEAN CORPUSCULAR HGB 28.5 pg (27.0-31.0); MEAN CORPUSCULAR HGB CONC 30.2 g/dl (33.0-37.0); MEAN PLATELET VOLUME 10.2 fl (9.6-12.3); MONO # 0.6 10*3/uL (0.1-1.0); MONO % 5.1 % (3.0-9.0); NEUT # 7.9 10*3/uL (2.3-7.9); NEUT % 69.7 % (47.0-73.0); PLATELET COUNT AUTOMATED 467 10*3/uL (130-400); RED BLOOD COUNT 4.77 10*6/uL (4.10-5.10); RED CELL DISTRI WIDTH 15.9 % (0-14.5); WHITE BLOOD COUNT 11.3 10*3/uL (4.8-10.8)
[2024-04-07 11:36] LABS: ALKALINE PHOSPHATASE 82 U/L (46-116); BUN 13 mg/dl (9-23); CHLORIDE 106 mmol/L (98-107); CHOLESTEROL 213 mg/dL (<200); FREE T4 1.98 ng/dl (0.89-1.76); SGPT/ALT 8 U/L (5-49); TOTAL PROTEIN 7.4 gm/dL (6.0-8.0); TRIGLYCERIDES 479 mg/dl (<150)
[2024-04-07 11:37] LABS: VITAMIN D, 25-HYDROXY 25.9 ng/mL (30-100)
== END ==
LOC: LAB 10:29
PROVIDERS: ATTEND Internal Medicine
DX: Z13.1 Encounter for screening for diabetes mellitus (principal); Z13.0 Encounter for screening for diseases of the blood and blood-forming organs and certain disorders involving the immune mechanism; Z13.220 Encounter for screening for lipoid disorders; Z13.21 Encounter for screening for nutritional disorder; Z13.29 Encounter for screening for other suspected endocrine disorder; Z13.89 Encounter for screening for other disorder; Z13.9 Encounter for screening, unspecified; E78.2 Mixed hyperlipidemia; I10 Essential (primary) hypertension; E03.9 Hypothyroidism, unspecified

== ENCOUNTER → 2024-05-05 | Outpatient (CLI) | payer MEDICARE, MEDICAID | END | disposition home or self-care (01) | LOC: RAD 13:36 | PROVIDERS: ATTEND Orthopaedic Surgery | DX: M81.0 Age-related osteoporosis without current pathological fracture (principal) ==

== ENCOUNTER → 2024-07-04 | Outpatient (CLI) | payer MEDICARE, MEDICAID ==
[~2024-07-04] MED LIST changes: +DENOSUMAB 60 MG/ML SYRINGE SC ONE
[2024-07-04 10:16] VITALS: BP 108/49
== END | disposition home or self-care (01) ==
LOC: INJECTION 09:58
PROVIDERS: ATTEND Internal Medicine
DX: M81.0 Age-related osteoporosis without current pathological fracture (principal); E78.00 Pure hypercholesterolemia, unspecified; E89.0 Postprocedural hypothyroidism; J43.9 Emphysema, unspecified; Z86.73 Personal history of transient ischemic attack (TIA), and cerebral infarction without residual deficits

== ENCOUNTER → 2024-08-21 | Outpatient (CLI) | payer MEDICARE, MEDICAID ==
[~2024-08-21] MED LIST changes: -DENOSUMAB 60 MG/ML SYRINGE SC ONE
== END | disposition home or self-care (01) ==
LOC: RAD 12:01
PROVIDERS: ATTEND Internal Medicine
DX: M47.816 Spondylosis without myelopathy or radiculopathy, lumbar region (principal); M43.26 Fusion of spine, lumbar region

== ENCOUNTER → 2025-06-18 | Outpatient (CLI) | payer MEDICARE, MEDICAID ==
[2025-06-18 14:29] LABS: BASO # 0.1 10*3/uL (0.0-0.1); BASO % 0.9 % (0.0-1.0); EOS # 0.2 10*3/uL (0.0-0.4); EOS % 1.4 % (1.0-4.0); MEAN CELL VOLUME 86.1 fl (81.0-99.0); MEAN CORPUSCULAR HGB 26.0 pg (27.0-31.0); MEAN PLATELET VOLUME 10.1 fl (9.6-12.3); MONO # 0.6 10*3/uL (0.1-1.0); MONO % 4.9 % (3.0-9.0); NEUT # 8.4 10*3/uL (2.3-7.9); NEUT % 73.4 % (47.0-73.0); NUCLEATED RED BLOOD CELL 0.0 % (0.0-0.0); NUCLEATED RED BLOOD CELL 0.0 10*3/uL (0.0-0.0); PLATELET COUNT AUTOMATED 459 10*3/uL (130-400); RED CELL DISTRI WIDTH 17.1 % (0-14.5)
[2025-06-18 14:31] LABS: BUN 21 mg/dl (9-23); FREE T4 2.10 ng/dl (0.89-1.76); LDL CHOLESTEROL 94 mg/dL (9-159); SGPT/ALT 8 U/L (5-49)
[2025-06-18 14:34] LABS: VITAMIN D, 25-HYDROXY 33.3 ng/mL (30-100)
== END | disposition home or self-care (01) ==
LOC: LAB 13:44
PROVIDERS: ATTEND Internal Medicine
DX: I10 Essential (primary) hypertension (principal); E78.2 Mixed hyperlipidemia; I95.89 Other hypotension; R53.83 Other fatigue; E03.9 Hypothyroidism, unspecified; E78.1 Pure hyperglyceridemia; D50.9 Iron deficiency anemia, unspecified; E53.9 Vitamin B deficiency, unspecified; E55.9 Vitamin D deficiency, unspecified; F17.210 Nicotine dependence, cigarettes, uncomplicated